=== PATIENT | female | born 1940 | race Caucasian/White ===

== ENCOUNTER → 2018-12-04 11:39 | Outpatient (CLI) | payer MEDICARE, SELFPAY | PROVIDERS: PCP Family Medicine; Referring Provider Family Medicine; Visit Provider Family Medicine | DX: I49.9 Cardiac arrhythmia, unspecified (principal); I42.9 Cardiomyopathy, unspecified | CPT/HCPCS: 93225; 93226 ==

== ENCOUNTER → 2019-05-11 08:06 | Outpatient (CLI) | payer MEDICARE, SELFPAY ==
--- NOTE | 2019-05-11 08:09 | US_ITS ---
PROCEDURE: US ABDOMEN COMPLETE CLINICAL INDICATION: EPIGASTRIC FULLNESS, GERD COMPARISON: No exams were available for comparison FINDINGS: PANCREAS: Unremarkable. No obvious mass or abnormal fluid collection. No ductal dilatation LIVER: No focal liver lesions demonstrated. Homogeneous echogenicity. No intrahepatic biliary ductal dilatation evident. There is appropriate direction of blood flow within a non dilated portal vein RIGHT KIDNEY: Unremarkable. Normal size and echogenicity. No hydronephrosis LEFT KIDNEY: There is a 2 cm left renal cyst along the lower pole of the left kidney. GALLBLADDER: No gallstones, gallbladder wall thickening, pericholecystic fluid, or biliary dilatation. There is a trace amount of sludge in the gallbladder with a suspected small polyp along the anterior wall at 2 mm. AORTA: Atherosclerotic changes involve the abdominal aorta with mild ectasia of the lower abdominal aorta at 2 cm. SPLEEN: Unremarkable. Normal size and echogenicity ASCITES: None demonstrated. IMPRESSION: 1. Trace gallbladder sludge with small polyp. No stones 2. Mild ectasia of the abdominal aorta at 2 cm with atherosclerotic change 3. 2 cm left renal cyst Dictated by: Tez Ahumada MD 05/12/2019 12:20 Electronically signed by Tez Ahumada MD in [place] 05/12/2019 12:20
== END ==
PROVIDERS: PCP Family Medicine; Visit Provider Family Medicine
DX: R19.06 Epigastric swelling, mass or lump (principal)
CPT/HCPCS: 76700

== ENCOUNTER → 2020-02-03 09:50 | Outpatient (CLI) | payer MEDICARE, SELFPAY ==
[2020-02-03 13:24] LABS: Coronavirus 19 IgG Antibody Negative (Negative); Coronavirus 19 IgM Antibody Negative (Negative)
== END ==
PROVIDERS: Visit Provider Internal Medicine Gastroenterology
DX: Z01.818 Encounter for other preprocedural examination (principal)
CPT/HCPCS: 36415; 86328

== ENCOUNTER 2020-02-06 09:52 | Day surgery (SDC) | payer MEDICARE, SELFPAY ==
[2020-01-31 10:40] VITALS: BMI 26.6
[2020-02-06] VITALS (7 sets, daily range): BP systolic 92–146; BP diastolic 53–84; PULSE 55–72; RESP 18; TEMP 36.3–36.5; O2SAT 96–100
--- NOTE | 2020-02-06 10:44 | HMH.PROC ---
[facility] Procedure Note Procedure Note:: Colonoscopy Procedure Report: Colonoscopy with monopolar ablation to destruction of internal hemorrhoids Endoscopist: Urbano Daniels II, MD Referring physician: José Miguel Duke MD Date of Procedure: February 06, 2020 Equipment: Olympus 180 variable stiffness pediatric colonoscope Sedation: MAC sedation Indication: Mrs. Sky is a 79-year-old female who is here for diagnostic colonoscopy secondary to some recent rectal bleeding twice. She also had some rectal bleeding with the bowel preparation last evening. The patient did have a colonoscopy 3 years ago (reportedly normal). The patient rarely has diarrhea. She reports no abdominal pain or weight loss. She is on Plavix and aspirin. Her daughter had colon cancer in her early 40s. Procedure: Prior to the procedure, a history and physical exam was performed, and patient's medications and allergies were reviewed. The risks, benefits and alternatives of the sedation and procedure were discussed with the patient. All questions were answered and informed consent was obtained. The patient was brought to the procedure room. Patient identification and proposed procedure were verified by the physician and the nurse. The patient was placed in a left lateral decubitus position and the scope was passed under direct vision. Throughout the procedure, the patient's blood pressure, pulse, and oxygen saturations were monitored continuously. The colonoscopy was accomplished without difficulty. The patient tolerated the procedure well. Findings: On digital rectal examination there was normal rectal tone. There were no external hemorrhoids. The colonoscope was introduced through the anal canal to the rectum and advanced to the cecum. The ileocecal valve and appendiceal orifice were identified. The scope was advanced a short distance into the ileum which appeared grossly normal. The scope was then withdrawn into the colon. The cecum, ascending, transverse, descending, sigmoid and rectum were grossly normal. There were no mucosal abnormalities identified. Upon retroflexion within the rectum there were grade 1-2 internal hemorrhoids.3 columns of hemorrhoids were ablated/coagulated using monopolar ablation to destruction with excellent coagulative effect. The preparation was excellent throughout with [place] Preparation Score of 9. The cecal time was 10 minutes. Impression: 1. Normal colonoscopy with intubation of the terminal ileum 2. Grade 1-2 internal hemorrhoids status post monopolar ablation/coagulation to destruction Plan: The patient did have bleeding internal hemorrhoids. I would encourage bulk fiber supplementation on a long-term daily maintenance basis. I am not convinced that the patient will require any further surveillance colonoscopy based upon her age.
== END 2020-02-06 12:16 | disposition home or self-care (01) ==
LOC: OUTP 09:54
PROVIDERS: PCP Family Medicine; Visit Provider Internal Medicine Gastroenterology
PROC: 0DJD8ZZ Inspection of Lower Intestinal Tract, Via Natural or Artificial Opening Endoscopic (ICD-10-PCS; CPT 45378; principal; 2020-02-06 11:00)
DX: K64.0 First degree hemorrhoids (principal); K62.5 Hemorrhage of anus and rectum; Z80.0 Family history of malignant neoplasm of digestive organs; Z79.02 Long term (current) use of antithrombotics/antiplatelets; Z79.82 Long term (current) use of aspirin; I10 Essential (primary) hypertension; I25.10 Atherosclerotic heart disease of native coronary artery without angina pectoris; Z88.0 Allergy status to penicillin; Z88.8 Allergy status to other drugs, medicaments and biological substances
CPT/HCPCS: 45378; 46930

== ENCOUNTER → 2020-09-24 12:12 | Outpatient (CLI) | payer MEDICARE, SELFPAY ==
--- NOTE | 2020-09-24 12:29 | ECG_ITS ---
APPROVED REPORT Exam: Resting ECG HR:51 bpm ECG Measurements Heart Rate 51 AXES [place] 152 P 43 QRSd 134 QRS 83 QT 450 T 45 QTc 414 Conclusion Sinus bradycardia Left bundle branch block Abnormal ECG Electronically signed by : Nelson Cedeño, 09/24/2020 14:58:33
== END ==
PROVIDERS: PCP Family Medicine; Visit Provider Family Medicine
DX: R07.9 Chest pain, unspecified (principal); K82.4 Cholesterolosis of gallbladder
CPT/HCPCS: 93005

== ENCOUNTER → 2020-09-27 08:02 | Outpatient (CLI) | payer MEDICARE, SELFPAY ==
--- NOTE | 2020-09-27 08:05 | US_ITS ---
PROCEDURE: US ABDOMEN LIMITED CLINICAL INDICATION: POLYP OF GB Abdominal pain COMPARISON: US US ABDOMEN COMPLETE from 05/11/2019 FINDINGS: PANCREAS: Unremarkable. No obvious mass or abnormal fluid collection. No ductal dilatation LIVER: No focal liver lesions demonstrated. Homogeneous echogenicity. No intrahepatic biliary ductal dilatation evident. There is appropriate direction of blood flow within a non dilated portal vein RIGHT KIDNEY: Unremarkable. Normal size and echogenicity. No hydronephrosis GALLBLADDER: Numerous small echogenic foci with comet tail artifact noted within the gallbladder wall with some minimal gallbladder wall thickening consistent with adenomyomatosis. No shadowing stones apparent. IMPRESSION: Adenomyomatosis of the gallbladder which appears somewhat more evident than when compared to the previous exam Dictated by: Tez Ahumada MD 09/27/2020 15:22 Tez Ahumada MD in [place] 09/27/2020 15:22
== END ==
PROVIDERS: PCP Family Medicine; Visit Provider Family Medicine
DX: K82.4 Cholesterolosis of gallbladder (principal)
CPT/HCPCS: 76705

== ENCOUNTER → 2020-10-17 09:33 | Outpatient (CLI) | payer MEDICARE, SELFPAY ==
--- NOTE | 2020-10-17 09:35 | MM_ITS ---
PROCEDURE: MM DIG SCREENING MAMM BI W/CAD Digital Breast Tomosynthesis Included CLINICAL INDICATION: FIBROCYSTIC BREAST DISEASE LT There is no personal or family history of breast cancer. COMPARISON: MG DMDXUAVL DIG MAMM-DX UNI ADD VIEWS-LT from 04/12/2015 MG DMDXUL DIG MAMM-DX UNI-LT from 10/30/2015 MG DMSB DIG MAMM-SCREEN GURWINDER W/CAD from 01/27/2017 TECHNIQUE: Standard CC and MLO images and 3D Tomosynthesis was obtained. R2 CAD reviewed. FINDINGS: Breasts are composed primarily of fat with scattered fibroglandular densities in each breast. Moderate arterial calcification in each breast. There is a mole marker near the axillary tail right breast. There is a partially calcified oil cyst upper right breast. There is a stable tiny benign-appearing nodular density central portion right breast. There is no suspicious lesion in either breast and no suspicious microcalcifications. IMPRESSION: Fibrofatty parenchyma with no suspicious lesions seen BI-RAD Category: 2 Benign Finding(s) FOLLOW-UP: 1YR 1 Year Follow-up (A letter has been sent to the patient regarding results of the study.) Dictated by: Dr. Roman Brown MD 10/21/2020 12:20 Dr. Roman Brown MD in [place] 10/21/2020 12:20
--- NOTE | 2020-10-17 09:35 | XR_ITS ---
PROCEDURE: XR DEXA AXIAL SKELETON CLINICAL HISTORY: OSTEOPENIA COMPARISON: CR BONE3 BONE DENSITOMETRY(HIP:LT SPINE from 01/27/2017 FINDINGS: The right hip BMD is 0.724 with a T-score of -1.8. The left hip BMD is 0.624 with a T-score of -2.6. The lumbar spine BMD is 0.833 with a T-score of -1.9. Previously the lowest density was in the left femur with a T-score of -2.4 IMPRESSION: This patient is considered osteoporotic according to the World Health Organization criteria. Fracture risk is high. Treatment is advised. Based on these results a follow-up exam is recommended in 1 year. Dictated by: Tez Ahumada MD 10/18/2020 07:58 Tez Ahumada MD in [place] 10/18/2020 07:58
== END ==
PROVIDERS: PCP Family Medicine; Visit Provider Family Medicine
DX: Z12.31 Encounter for screening mammogram for malignant neoplasm of breast (principal); M85.89 Other specified disorders of bone density and structure, multiple sites
CPT/HCPCS: 77063; 77067; 77080

== ENCOUNTER → 2022-04-30 10:46 | Outpatient (CLI) | payer MEDICARE, SELFPAY ==
--- NOTE | 2022-04-30 | CA_ITS ---
APPROVED REPORT EXAM: Comprehensive 2D, Doppler, and color-flow Echocardiogram Vice President Of Human Resources: Jenny Guido CRT Ht: 5 ft 6 in Wt: 156lbs BSA: 1.80 BP: 110/70 mmHg Indications: Hyperlipidemia, Cardiomyopathy, Hypertension/HDD 2D Dimensions LVOT 1.83 cm (M/F) 1.5-2.5 LA Volume 44.70 mL LA Volume Index 24.80 mL/m2 (M/F) 16-34 M-Mode Dimensions RVDd 2.93 cm (0.9-2.6) LA Diam 3.59 cm (1.9-4.0) LVDd 5.25 cm (3.5-5.7) Ao Diam 3.68 cm (2.0-3.7) LVDs 3.97 cm (3.5-5.7) IVSd 1.54 cm (0.6-1.1) PWd 0.54 cm (0.6-1.1) EF (Teich) 48.00% FS 24.40% EDV (Teich) 132.40 mL TAPSE 2.48 (<1.7) ESV (Teich) 68.80 mL LV Diastology E Decel Time 247.00 (160-240 msec) E/A Ratio 1.12 MED E' 6.40 (< 7 cm/sec) MED A' 9.50 cm/s E'/MED E' Ratio 18.41 (>14) LAT E' 7.20 (<10 cm/sec) LAT A' 11.00 cm/s E/LAT E' Ratio 16.36 (>14) Aortic Valve AI PHT 662.00 ms AO Peak GR. 6.40 mmHg Mitral Valve MV E Max Doyle. 118.00 (40-130 cm/s) MV A Velocity 105.00 (40-130 cm/s) E/A Ratio 1.12 MV Decel. Time 247.00 (160-240 ms) MV PHT 72.00 ms Pulmonary Valve PV Peak Velocity 134.00 (50-150 cm/s) Tricuspid Valve TR P. Velocity 237.00 cm/s RAP Estimate 10.00 mmHg RVSP 32.50 mmHg Left Ventricle Left atrium is mildly enlarged, left ventricle is normal size mild concentric left ventricular hypertrophy, estimated ejection fraction between 45 to 50%, there is mild hypokinesis involving mid to distal septum and anterior apical wall. Grade 1 diastolic dysfunction seen without tissue Doppler evidence of raise left atrial pressure. Right Ventricle Right atrium and right ventricle are normal size and contractility. Aortic Valve Aortic valve is minimally thickened and fibrosed there is no aortic stenosis, there is mild aortic insufficiency. Mitral Valve Mitral valve leaflets are minimally thickened, there is mild mitral regurgitation. Tricuspid Valve Tricuspid valve grossly normal, there is mild tricuspid regurgitation, calculated right ventricular systolic pressure 32 mmHg. Pulmonic Valve Pulmonic valve is poorly visualized. Great Vessels Aortic root is normal size. Inferior vena cava is poorly visualized. Pericardium No significant pericardial effusion noted. Conclusion 1. Mildly enlarged left atrium, normal left ventricular size, mild concentric left ventricular hypertrophy, estimated ejection fraction between 45 to 50%, with segmental wall motion abnormality described above, grade 1 diastolic dysfunction seen without tissue Doppler evidence of raise left atrial pressure. 2. Mild aortic, mild mitral and tricuspid regurgitation. 3. No significant pericardial effusion. 4. Inferior vena cava is poorly visualized. Electronically signed by : Humphrey Sanchez MD 05/01/2022 06:10:35
== END ==
PROVIDERS: PCP Family Medicine; Visit Provider Family Medicine
DX: I42.8 Other cardiomyopathies (principal)
CPT/HCPCS: 93306

== ENCOUNTER → 2023-04-09 09:02 | Outpatient (CLI) | payer MEDICARE, SELFPAY ==
--- NOTE | 2023-04-09 09:08 | XR_ITS ---
FINAL REPORT CLINICAL HISTORY: OSTEOPOROSIS COMPARISON: 10/17/2020 FINDINGS: Using L1-4, the bone mineral density of the spine is 0.847 g/cm2, corresponding to T-score of -1.8, consistent with low bone density. Previously 0.833 g/cm? with T score of -1.9. Using the left hip, the bone mineral density of the femoral neck is 0.598 g/cm2, corresponding to a T-score of -2.3, consistent with low bone density. Previously 0.648 g/cm? with a T score of -1.8. Using the right hip, the bone mineral density of the femoral neck is 0.594 g/cm2, corresponding to a T-score of -2.3, consistent with low bone density. Previously 0.697 g/cm? with a T score of -1.5. FRAX not reported because total T-score for left hip at or below -2.5. NOTE: T-score: Standard deviation compared with peak bone mass of young adult mean. *Following the recommendations of the International Society of Bone densitometry, classification of hip BMD is based on the lower of two T-scores; total hip or femoral neck. IMPRESSION: Diminished bone mineral density consistent with low bone density/borderline osteoporosis. Reviewed, Interpreted and Dictated by Neil Bliss III, MD Transcribed by Verónica Arreaga Authenticated and [facility]
== END ==
PROVIDERS: PCP Family Medicine; Visit Provider Family Medicine
DX: M81.0 Age-related osteoporosis without current pathological fracture (principal)
CPT/HCPCS: 77080

== ENCOUNTER 2023-08-04 09:56 | Outpatient (POV) | payer MEDICARE, SELFPAY | END 2023-08-04 23:59 | disposition home or self-care (01) | LOC: SC 09:57 | PROVIDERS: PCP Family Medicine; Visit Provider Dermatology | DX: Z00.00 Encounter for general adult medical examination without abnormal findings (principal) ==

== ENCOUNTER 2024-05-01 11:38 | Emergency (ER) | payer MEDICARE, SELFPAY ==
[2024-05-01] VITALS (11 sets, daily range): BP systolic 154–195; BP diastolic 58–80; PULSE 54–82; RESP 14–23; TEMP 36.6; O2SAT 96–100; BMI 24.2
--- NOTE | 2024-05-01 11:52 | ECG_ITS ---
APPROVED REPORT Exam: Resting ECG HR:63 bpm ECG Measurements Heart Rate 63 AXES [place] 154 P 15 QRSd 141 QRS 88 QT 428 T 4 QTc 436 Conclusion SINUS RHYTHM INTRAVENTRICULAR CONDUCTION DELAY [130+ ms QRS DURATION] ABNORMAL ECG Electronically signed by : CRUZ STOUT, 05/03/2024 07:31:42
--- NOTE | 2024-05-01 12:20 | ED_ITS ---
Discharge Plan Disposition Chief Complaint: Weakness Prescriptions Prescriptions: No Action losartan 50 MG tablet 50 mg PO DAILY clopidogrel 75 MG tablet 75 mg PO DAILY aspirin 81 MG tablet,delayed release (DR/EC) 81 mg PO DAILY triamterene-hydrochlorothiazid 1 EACH tablet 1 each PO DAILY metoprolol succinate 25 MG tablet extended release 24 hr 25 mg PO DAILY ezetimibe 10 MG tablet 10 mg PO DAILY Referrals Follow up/Referrals: Terrell Duke MD [Primary Care Provider] - See instructions Print Language Print Language: Peruvian Discharge ED Provider: [place] Katz [facility] Adult HPI General Chief complaint: Weakness Stated complaint: weakness, heart palpitations, cough, pain in ribs Time Seen by Provider: 05/01/24 12:20 Mode of Arrival: Ambulatory Source of Information: Patient Limitations: No Limitations Description of Symptoms (Recalled from ER Triage Doc. by RN): pt c/o weakness and heart racing. pt denies chest pain. pt reports she has been sick for about 3wks with a nonproductive cough. pt states she tested today at home and was negative for covid. pt reports she has seen her pcp X2 during this time. pt is currently on an antibiotic. History of Present Illness HPI narrative: Patient is a 83-year-old with past medical history significant for coronary artery disease status post 1 stent hypertension who presents to the emergency department with 3 days of generalized weakness. She has had 3 weeks of a nonproductive cough with started on Mucinex D without improvement of symptoms and is currently taking an antibiotic prescribed by her primary care provider. Patient takes a diuretic pill with no recent changes in medications. Patient denies chest pain shortness of breath with exertion patient feels like she gets dizzy about to pass out whenever she stands from a lying down position. No diarrhea abdominal pain dysuria or increased urinary frequency. Patient is still able to get about her house without difficulty and ambulate. Denies palpitations. Intermittent bilateral flank pain Related Data Home Medications ?Medication ?Instructions ?Recorded ?Confirmed aspirin 81 mg tablet,delayed 81 mg PO DAILY Blood thinner 01/31/20 02/06/20 release clopidogrel 75 mg tablet 75 mg PO DAILY Blood thinner 01/31/20 02/06/20 ezetimibe 10 mg tablet 10 mg PO DAILY Cholesterol 01/31/20 02/06/20 losartan 50 mg tablet 50 mg PO DAILY bp 01/31/20 02/06/20 metoprolol succinate 25 mg 25 mg PO DAILY bp 01/31/20 02/06/20 tablet,extended release 24 hr triamterene 37.5 1 each PO DAILY bp 01/31/20 02/06/20 mg-hydrochlorothiazide 25 mg tablet Allergies Allergy/AdvReac Type Severity Reaction Status Date / Time Penicillins [PENICILLINS] Allergy Unknown I-RASH Verified 02/06/20 10:19 ticagrelor [From [facility]] Allergy Unknown I-RASH Verified 02/06/20 10:19 [facility] Disclaimer: The information contained in this section may have been updated after the patient was seen, as this information can be updated by other users. Social History Smoking Status: Never smoker second hand exposure: No alcohol intake: never current occupational status: retired Travel in the last 8 weeks: None housing: house current occupational exposures/hazards: No caffeine: Yes ROS Obtained: Yes All systems reviewed & no additional complaints except as documented Physical Exam General General appearance: alert and in no apparent distress Head Head exam: atraumatic and normocephalic Eye Eye exam: Present normal appearance and PERRL ENT ENT exam: Present normal exam and mucous membranes moist Chest Chest inspection: Present normal inspection; Absent tenderness Respiratory Respiratory exam: Present normal lung sounds bilaterally; Absent respiratory distress Cardiovascular Cardiovascular exam: Present regular rate and normal rhythm Abdominal Exam Abdominal exam: Present soft; Absent distention or tenderness Neurological Exam Neurological exam: Present alert, oriented X3, CN II-XII intact, normal gait and other (Negative nhon-ug-[id number] and oimjuf-wj-pagi); Absent motor sensory deficit Other Other exam information: Positive orthostasis with standing Medical Decision Making Medical Records Screening: Per USPSTF and CDC recommendations, given the prevalence of disease in our region, it is our hospital?s policy to screen for HIV and viral Hepatitis for all patients aged 18 and over and those with ongoing risk factors. Stephen Inquiry Pt receiving controlled substance: No Vital Signs: 05/01/24 11:51 05/01/24 12:01 05/01/24 12:30 Temperature 98 F Temperature Source Oral Pulse Rate 65 63 Pulse Rate [Left] 82 Pulse Rate [Orthostatic Lying Right Radial] Pulse Rate [Orthostatic Sitting Right Radial] Pulse Rate [Orthostatic Standing Right Radial] Respiratory Rate 14 20 14 Blood Pressure 171/69 H 178/69 H Blood Pressure [Orthostatic Lying Right Arm] Blood Pressure [Orthostatic Sitting Right Arm] Blood Pressure [Orthostatic Standing Right Arm] Blood Pressure [Right Arm] 195/80 H Blood Pressure Mean [Right Arm] 118 Blood Pressure Source [Right Arm] Automatic Cuff Blood Pressure Position [Right Arm] Sitting 02 Sat by Pulse Oximetry 98 97 100 Oxygen Delivery Method Room Air Room Air 05/01/24 13:05 05/01/24 13:07 05/01/24 13:30 Temperature Temperature Source Pulse Rate 59 L 57 L Pulse Rate [Left] Pulse Rate [Orthostatic Lying Right Radial] 61 Pulse Rate [Orthostatic Sitting Right Radial] 59 L Pulse Rate [Orthostatic Standing Right Radial] 74 Respiratory Rate 21 15 Blood Pressure 154/68 H 160/59 H Blood Pressure [Orthostatic Lying Right Arm] 168/67 H Blood Pressure [Orthostatic Sitting Right Arm] 176/72 H Blood Pressure [Orthostatic Standing Right Arm] 154/68 H Blood Pressure [Right Arm] Blood Pressure Mean [Right Arm] Blood Pressure Source [Right Arm] Blood Pressure Position [Right Arm] 02 Sat by Pulse Oximetry 98 99 Oxygen Delivery Method Room Air Room Air 05/01/24 14:00 05/01/24 14:30 05/01/24 15:00 Temperature Temperature Source Pulse Rate 55 L 54 L 62 Pulse Rate [Left] Pulse Rate [Orthostatic Lying Right Radial] Pulse Rate [Orthostatic Sitting Right Radial] Pulse Rate [Orthostatic Standing Right Radial] Respiratory Rate 23 19 23 Blood Pressure 166/58 H 158/60 H 166/66 H Blood Pressure [Orthostatic Lying Right Arm] Blood Pressure [Orthostatic Sitting Right Arm] Blood Pressure [Orthostatic Standing Right Arm] Blood Pressure [Right Arm] Blood Pressure Mean [Right Arm] Blood Pressure Source [Right Arm] Blood Pressure Position [Right Arm] 02 Sat by Pulse Oximetry 98 98 96 Oxygen Delivery Method Room Air Room Air Room Air Lab Data Lab Results 05/01/24 11:50: WBC 8.3, RBC 4.52, Hgb 13.9, Hct 44.4, MCV 98.1, MCH 30.7, MCHC 31.3 L, RDW 13.7, Plt Count 355, MPV 7.0 L, Neut % (Auto) 61.7, Lymph % (Auto) 25.9, [place] % (Auto) 8.4, Eos % (Auto) 2.9, Baso % (Auto) 1.1, Neut # (Auto) 5.1, Lymph # (Auto) 2.2, [place] # (Auto) 0.7, Eos # (Auto) 0.2, Baso # (Auto) 0.1, Sodium 138, Potassium 4.0, Chloride 106, Carbon Dioxide 27, Anion Gap 9.0, BUN 32 H, Creatinine 1.10 H, Estimated Creat Clear 42, Estimated GFR 47 L, Est GFR ( Amer) 57 L, Glucose 99, Calcium 10.0, Magnesium 1.5 L, Total Bilirubin 0.8, AST 36, ALT 18, Alkaline Phosphatase 78, Troponin I < 0.01, NT-Pro-B Natriuret Pep 839 H, Total Protein 7.4, Albumin 4.4, Globulin 3.0, Albumin/Globulin Ratio 1.5, TSH 2.15, Thyroxine (T4) 11.9 H 05/01/24 11:54: HIV 1&2 Antibody Rapid Nonreactive 05/01/24 11:50 05/01/24 11:50 Orders (Tests/Meds): ED MEDICATIONS Discontinued Medications Generic Name Dose Route Start Last Admin Trade Name Freq PRN Reason Stop Dose Admin Lactated Ringer's 500 mls @ 999 mls/hr 05/01/24 12:32 05/01/24 13:12 Lactated Ringer's 500ml IV 05/01/24 13:02 999 mls/hr .Q31M ONE Administration ORDERS Category Date Time Status Chest XR 2 view (NOT portable) [XR chest 2V] Stat Exams 05/01/24 12:29 Completed BNP [NT Pro Brain Natriuretic Pep.] Stat Lab 05/01/24 11:50 Completed CBC w/Auto Diff [Complete Blood Count Auto Diff] Stat Lab 05/01/24 11:50 Completed CMP [Comprehensive Metabolic Panel] Stat Lab 05/01/24 11:50 Completed HIV (1&2) Antibody Rapid Stat Lab 05/01/24 11:54 Completed Hep C Ab with Reflex to RNA Stat Lab 05/01/24 11:54 Received MAG [Magnesium] Stat Lab 05/01/24 11:50 Completed T4 (Thyroxine) Stat Lab 05/01/24 11:50 Completed TSH [Thyroid Stimulating Hormone] Stat Lab 05/01/24 11:50 Completed Trop I [Troponin I] Stat Lab 05/01/24 11:50 Completed UA [Urinalysis and Microscopic] Stat Lab 05/01/24 16:11 Received Medical Decision Narrative: In summary, this 83-year-old female presents to the emergency department today with generalized weakness. On initial evaluation patient is hemodynamically stable saturating appropriately on room air afebrile no acute distress. Differential diagnosis includes but is not limited to viral or bacterial pneumonia, electrolyte abnormality, dehydration orthostasis, cystitis, heart failure exacerbation, hypothyroidism pyelonephritis. Based on these concerns, I ordered Chest x-ray BNP CBC CMP magnesium TSH T4 troponins UA . ECG personally interpreted demonstrates normal sinus rhythm no acute ST elevation ST depression or T wave inversions concerning for ischemia Patient received 500 cc of LR for treatment. Labs personally reviewed demonstrate normal Hb, mag 1.5 XR personally interpreted demonstrates atelectasis left lung, no pneumothorax or consolidation On reassessment patient has improvement of symptoms able to ambulate and tolerate p.o. at 4 PM transfer of care was given to Dr. Katz pending urine studies for evaluation of urinary tract infection. Critical Care Critical Care Time Critical Care Time: No
--- NOTE | 2024-05-01 12:29 | XR_ITS ---
PROCEDURE INFORMATION: Exam: XR Chest Exam date and time: 05/01/2024 12:38 PM Age: 83 years old Clinical indication: Shortness of breath; Prior surgery; Surgery date: 6+ months; Surgery type: Stent placement; Additional info: SOA TECHNIQUE: Imaging protocol: Radiologic exam of the chest. Views: 2 views. COMPARISON: No relevant prior studies available. FINDINGS: Lungs: Calcified granuloma left lung base. Hyperlucent changes are demonstrated. Increase in the lung volumes is demonstrated. Regions of subsegmental atelectasis most pronounced left lung base. Pleural spaces: Unremarkable. No pleural effusion. No pneumothorax. Heart/Mediastinum: Unremarkable. No cardiomegaly. Diaphragm: There is flattening of the hemidiaphragms. Bones/joints: Unremarkable. IMPRESSION: 1. Regions of subsegmental atelectasis most pronounced left lung base. 2. No evidence of acute cardiopulmonary disease.
[2024-05-01 12:41] LABS: Albumin Level 4.4 g/dl (3.5-5.0); Chloride 106 mmol/L (98-107); Sodium 138 mmol/L (136-145)
[2024-05-01 12:43] LABS: Blood Urea Nitrogen 32 mg/dl (7-17); Creatinine Clearance Estimated 42 mL/min (50-200); Estimated Glomerular Filt Rate 47 ml/min (>60); GFR (African American) 57 ML/MIN (>60)
[2024-05-01 12:44] LABS: Alanine Aminotransferase 18 U/L (12-78); Albumin/Globulin Ratio 1.5 (1.1-1.8); Alkaline Phosphatase 78 U/L (38-126); Aspartate Amino Transferase 36 U/L (14-36); Bilirubin,Total 0.8 mg/dl (0.2-1.3); Carbon Dioxide 27 mmol/L (22.0-30.0); Glucose 99 mg/dl (74-100); Magnesium 1.5 mg/dl (1.6-2.3); Total Protein,Serum 7.4 g/dl (6.3-8.2)
[2024-05-01 12:45] LABS: HIV (1&2) Antibody Rapid NONREACTIVE (NONREACTIVE)
--- NOTE | 2024-05-01 12:48 | PC.NURSE ---
patient gone to RAD at this time.
[2024-05-01 12:54] LABS: NT Pro Brain Natriuretic Pep. 839 pg/mL (0-450)
[2024-05-01 12:57] LABS: Troponin I < 0.01 ng/ml (0.00-0.034)
[2024-05-01 13:01] LABS: T4 (Thyroxine) 11.9 ug/dl (5.53-11.0)
[2024-05-01 13:06] LABS: Basophils # 0.1 K/mm3 (0-0.2); Basophils % 1.1 % (0.1-2.0); Eosinophils # 0.2 K/mm3 (0.0-0.4); Eosinophils % 2.9 % (0.1-12.0); Hematocrit 44.4 % (37.0-47.0); Hemoglobin 13.9 g/dL (12.2-16.2); Lymphocytes # 2.2 K/mm3 (0.7-4.5); Lymphocytes % 25.9 % (10-50); Mean Corpuscular HGB Conc 31.3 g/dL (31.8-35.4); Mean Corpuscular Hemoglobin 30.7 pg (27.0-31.2); Mean Corpuscular Volume 98.1 fl (81-99); Monocytes # 0.7 K/mm3 (0.1-1.0); Monocytes % 8.4 % (1.7-9.3); Neutrophils # 5.1 K/mm3 (1.8-7.8); Neutrophils % 61.7 % (37.0-80.0); Platelet Count 355 K/mm3 (142-424); Red Blood Count 4.52 M/mm3 (4.20-5.40); Red Cell Distribution Width 13.7 % (11.5-17.5); White Blood Count 8.3 K/mm3 (4.8-10.8)
[2024-05-01] MEDS: RINGERS SOLUTION,LACTATED 500 ML 999 ML IV (13:12)
--- NOTE | 2024-05-01 13:14 | PC.NURSE ---
I rounded on the pt, no new complaints at this time. no new needs voiced. call hutson in reach.
[2024-05-01 13:15] LABS: Thyroid Stimulating Hormone 2.15 uIU/mL (0.465-4.68)
[2024-05-01 16:14] LABS: Microscopic, Urine URINE MICROSCOPIC (MICROSCOPIC)
[2024-05-01 17:06] LABS: Appearance,Urine CLEAR (Clear); Bilirubin,Urine Negative (Negative); Blood, Urine Negative (Negative); Color,Urine YELLOW (Yellow); Glucose,Urine (UA) Negative (Negative); Ketones,Urine Negative (Negative); Leukocyte Esterase,Urine Negative (Negative); Nitrate,Urine Negative (Negative); Protein,Urine Negative (Negative); Specific Gravity, Urine 1.015 (1.005-1.030); Urobilinogen,Urine 0.2 EU/dl (0.2)
[2024-05-01 17:13] LABS: WBC,Urine Occasional #/hpf (0-3)
[2024-05-01] MEDS: MAGNESIUM OXIDE 400MG TABLET 800 MG PO (17:23)
[2024-05-02 11:10] LABS: HCV Ab Non Reactive (Non Reactive)
== END 2024-05-01 17:28 | disposition home or self-care (01) ==
PROVIDERS: Student in an Organized Health Care Education/Training Program; Emergency Provider Emergency Medicine; PCP Family Medicine
DX: R53.1 Weakness (principal); R79.89 Other specified abnormal findings of blood chemistry; R00.2 Palpitations; R07.81 Pleurodynia
CPT/HCPCS: 71046; 80053; 81001; 83735; 83880; 84436; 84443; 84484; 85025; 86803; 87389; 93005; 99284; J7120

== ENCOUNTER 2024-11-02 08:52 | Outpatient (CLI) | payer MEDICARE, SELFPAY ==
--- NOTE | 2024-11-02 08:56 | XR_ITS ---
FINAL REPORT TECHNIQUE: Bone mineral density was calculated of the lumbar spine and hip. CLINICAL HISTORY: SCREENING COMPARISON: 04/09/2023 FINDINGS: Using L1-4, the bone mineral density of the spine is 0.872 g/cm2, corresponding to T-score of -1.6. Using the left hip, the bone mineral density of the femoral neck is 0.665 g/cm2, corresponding to a T-score of -2.3. Using the right hip, the bone mineral density of the femoral neck is 0.650 g/cm?, corresponding to a T-score of -2.4. NOTE: T-score: Standard deviation compared with peak bone mass of young adult mean. *Following the recommendations of the International Society of Bone densitometry, classification of hip BMD is based on the lower of two T-scores; total hip or femoral neck. IMPRESSION: Diminished bone mineral density of the lumbar spine and bilateral hips consistent with osteopenia. Reviewed, Interpreted and Dictated by Terrell Joyce MD Transcribed by Oma Avina Authenticated and [facility]
== END 2024-11-02 23:59 | disposition home or self-care (01) ==
LOC: RAD 08:53
PROVIDERS: PCP Family Medicine; Visit Provider Family Medicine
DX: M81.0 Age-related osteoporosis without current pathological fracture (principal)
CPT/HCPCS: 77080

== ENCOUNTER 2025-05-15 08:54 | Outpatient (CLI) | payer MEDICARE, SELFPAY ==
--- OUTSIDE RECORDS SUMMARY | 2024-10-10 07:15 | XMS_ITS ---
Author Organization [facility] Address [address] [place], [place] [phone] Care Team Providers Care Investment Specialist Name Role Phone Elvie Duke Primary Care Provider [phone] Allergies Allergen (clinical drug ingredient) Drug/Non Drug Allergy documented on EMR Reaction Allergy Type Onset Date Status Substance with penicillin structure and antibacterial mechanism of action (substance) Penicillins rash Drug Allergy Active Results Component Value Reference Range Notes CBC Venipuncture (in house) Reviewed date:10/11/2024 08:44:13 AM Interpretation:Normal Performing Lab: Notes/Report: Normal wbc 8.1 3.5 - 10 lymph 17.9% 15 - 50 mid 5.5% 2 - 15 gran 76.6% 35 - 80 rbc 4.02 3.5 - 5.5 hgb 12.6 11.5 - 16.5 hct 36.7 35 - 55 mcv 91.2 75 - 100 mch 31.4 25 - 35 mchc 34.4 31 - 38 platlet 277 100 - 400 P-Comprehensive Metabolic Pa yuri (CMP) Reviewed date:10/11/2024 08:44:13 AM Interpretation:bun 33, Gr 1.15, gfr 47 Performing Lab: Notes/Report: Test performed by [employer] [place] [facility] [facility] , [address], [place] [address] Dane Kerr MD, Telecommunications Project Manager CLIA: [id number] Sodium 143 135-145 mmol/L Potassium 4.3 3.5-5.3 mmol/L Chloride 108 97-108 mmol/L CO2 26 22-32 mmol/L Glucose 93 65-99 mg/dL BUN 33 8-23 mg/dL Creatinine 1.15 0.50-1.00 mg/dL Calcium 9.6 8.6-10.4 mg/dL eGFR by Creatinine 47 >59 mL/min/1.73m2 Protein 6.6 6.0-8.3 g/dL Albumin 4.3 3.5-5.3 g/dL Alkaline Phosphatase 81 35-121 IU/L ALT (SGPT) 9 <5-47 IU/L AST (SGOT) 16 <5-40 IU/L Bilirubin, Total 0.5 <0.2-1.2 mg/dL A/G Ratio 1.9 1.1-2.5 DEXA Hip and Spine Reviewed date:02/24/2025 12:22:07 PM Interpretation:osteopenia Performing Lab: Notes/Report: osteopenia Dexa results osteopenia REASON FOR VISIT 4 Month Check Up, Needs labs & bone density screening Medications Medication SIG (Take, Route, Frequency, Duration) Notes Start Date End Date Status Clopidogrel Bisulfate 75 MG 1 tablet Orally Once a day; Duration: 30 days Active Vitamin D (Cholecalciferol) 50 MCG (2000 UT) 1 cap(s) orally once a day 05/16/2015 Active Chlorthalidone 25 MG 1 tablet in the mor emilee with food Orally; Duration: 30 days Active Vitamin B-12 1000 MCG 1 tab(s) orally on 05/16/2015 Active Losartan Potassium 50 MG 1 tablet Orally Once a day; Duration: 30 day(s) Active Zetia 10 MG 1 tab(s) orally once a day; Duration: 30 days Active Esomeprazole Magnesium 40 MG 1 cap(s) orally once a day 09/24/2020 Active Aspirin 81 MG 1 tab orally at bedtime 07/29/2011 Not-Taking Pravastatin Sodium 20 MG 1 tab(s) orally once a day (at bedtime); Duration: 30 days Active Risedronate Sodium 35 MG 1 Orally once a week 10/01 Active Metoprolol Succinate ER 25 MG TAKE 1/2 TABLET BY MOUTH IN THE MORNING AND 1 TABLET IN THE EVENING. Active Nitrostat 0.3 MG 1 tab(s) sublinguall y every 5 minutes as needed Active Flonase Allergy Relief 50 MCG/ACT 1 spray(s) in each nostril once a day; Duration: 30 day(s) 04/30/2022 Active Vital Signs Blood pressure systolic 144 mm Hg 10/11/19 25 Blood pressure diastolic 60 mm Hg 025 Heart Rate 59 /min 10/10/2024 Height 64.25 in 10/10/2024 Weight 148.0 lbs 10/10/2024 BMI 25.20 kg/m2 10/10/2024 Encounters Encounter Location Date Provider Diagnosis [facility] [address] [facility] [address] [facility] [address] [place] [id number] 10/10/2024 Elvie Duke Essential hypertensi on I10 ; Renal insufficiency N28.9 ; Osteoporosis M81.0 and Cardiac dysrhythmia, unspecified I49.9 Assessments Encounter Date Diagnosis (ICD Code) Assessment Notes Treatment Notes Treatment Clinical Notes Section Notes 10/10/2024 Essential hypertension (ICD-10 - I10) 10/10/2024 Renal insufficiency (ICD-10 - N28.9) 10/10/2024 Osteoporosis (ICD-10 - M81.0) 10/10/2024 Cardiac dysrhythmia, unspecified (ICD-10 - I49.9) Plan Of Treatment Medication Medication Name Sig Start Date Stop Date Notes Clopidogrel Bisulfate 75 MG 1 tablet Ora lly Once a day; Duration: 30 days Chlorthalidone 25 MG 1 tablet in the mor emilee with food Orally; Duration: 30 days Losartan Potassium 50 MG 1 tablet Orally Once a day; Duration: 30 day(s) Esomeprazole Magnesium 40 MG 1 cap(s) orally once a day Risedronate Sodium 35 MG 1 Orally once a week 10/10/2024 Next Appt Details Follow Up: 4 Months, Reason: Provider Name:Elvie Robb er, 06/19/2025 10:00:00 AM, [address] [facility], [address], [place], [phone], Progress Notes * SIRENA HACKETTDOB: (84 yo F)Acc No.[id number]:10/10/2024 Progress Notes Patient: SIRENA CHRISTIANSEN Provider: Elvie Duke M.D. :1940 A ge:83 Y S ex:Female Date:10/10/2024 Address:[address], [place] [address] Subjective: * Chief Complaints: * 1 . 4 Month Check Up. 2. Needs labs & bone density screening. * HPI: C ardiology: The pt is here for a check up on Hypertension and Hyperlipidemia. Pt states she is doing good and denies any new concerns. Pt is fasting. Pt states she is needing refills sent to [place] pharmacy. Denies : Chest Pain. D enies : Short of Breath. D enies : Dizziness. D enies : [...] Supraventricular Tachycardia, nonsustained, Athscl Heart Disease of [place] Coronary Artery w/o ang PCTRS, Essential Hypertension, Pure Hypercholesterolemia, Cardiomyopathy, Hyperlipidemi, Vitamin D Deficiency, Shingrix #1, 12/2018, Covid Vaccines, [place] HD, 10/03/2020 , Adenomyomatosis of the GB, [...] , Taking Vitamin D (Cholecalciferol) 50 MCG (1999 UT) Capsule 1 cap(s) orally once a [...] 25 MG Tablet Extended Release 24 Hour TAKE 1/2 TABLET BY MOUTH IN THE MORNING AND 1 TABLET IN THE EVENING. , Taking Clopidogrel Bisulfate 75 MG Tablet 1 tablet Orally Once a day , Taking Zetia 10 MG Tablet 1 tab(s) orally once a day , Taking Losartan Potassium 50 MG Tablet 1 tablet Orally Once a day , Taking Pravastatin Sodium 20 MG Tablet 1 tab(s) orally once a day (at bedtime) , Taking Chlorthalidone 25 MG Tablet 1 tablet in the morning with food Orally , Not-Taking Aspirin 81 MG Tablet Delayed Release 1 tab orally at bedtime , Discontinued Doxycycline Hyclate 100 MG Capsule 1 capsule Orally Two times a day , Discontinued Promethazine-DM 6.25-15 MG/5ML Syrup 5-10 ml Orally every 6 hrs prn , Medication List reviewed and reconciled with the patient * Allergies: P enicillins: rash. Objective: * Vitals: W t:148.0, Temp:97.8, BP:144/60, HR:59, O2 Sat:98% on RA, Nurse:LEXII, Ht: 64.25, BMI:25.20. * Examination: G eneral Examination: General Appearance: [...] ssential hypertension - I10 (Primary) 2 . R enal insufficiency - N28.9? 3. O steoporosis - M81.0 4 . C ardiac dysrhythmia, unspecified - I49.9 Plan: * Treatment: Value Reference Range A /G Ratio 1.9 1.1-2.5 - * A lbumin 4.3 3.5-5.3 - g/dL * A lkaline Phosphatase 81 35-121 - IU/L * A LT (SGPT) 9 <5-47 - IU/L * A ST (SGOT) 16 <5-40 - IU/L * B ilirubin, Total 0.5 <0.2-1.2 - mg/dL * B UN 33 H 8-23 - mg/dL * C alcium 9.6 8.6-10.4 - mg/dL * C hloride 108 97-108 - mmol/L * C O2 26 22-32 - mmol/L * C reatinine 1.15 H 0.50-1.00 - mg/dL * G lucose 93 65-99 - mg/dL * P otassium 4.3 3.5-5.3 - mmol/L * S odium 143 135-145 - mmol/L * P rotein 6.6 6.0-8.3 - g/dL * e GFR by Creatinine 47 L >59 - mL/min/1.73m2 * Db Garciaia 10/11/2024 08:4 4:06 AM > See phone encounter 2.?Renal insufficiency?LAB: CBC Venipuncture (in house) (Collection Date & Time - 10/10/2024)? Normal* Value Reference Range w bc 8.1 3.5 - 10 * l ymph 17.9% 15 - 50 * m id 5.5% 2 - 15 * g ran 76.6% 35 - 80 * r bc 4.02 3.5 - 5.5 * h gb 12.6 11.5 - 16.5 * h ct 36.7 35 - 55 * m cv 91.2 75 - 100 * m ch 31.4 25 - 35 * m chc 34.4 31 - 38 * p latlet 277 100 - 400 * Yuliet Ramirez 10/10/2024 12:18:1 7 PM > Lina Garcia 10/11/2024 08:44:06 AM > See phone encounter 3.?Osteoporosis? Start Risedronate Sodium Tablet, 35 MG, 1, Orally, once a week, 4, Refills 5.?Imaging: DEXA Hip and Spine (Performed Date - 11/02/2024)?osteopenia* Value Reference Range D exa results osteopenia * StephanieFreya 10/10/2024 1:51: 07 PM > faxed to [facility] Scheduling Adele Moreno 02/24/2025 12:21:58 PM EDT > See phone encounter 4.?Cardiac dysrhythmia, unspecified? Refill Clopidogrel Bisulfate Tablet, 75 MG, 1 tablet, Orally, Once a day, 30 days, 30 Tablet, Refills 4.??5.?Others? Refill Esomeprazole Magnesium Capsule Delayed Release, 40 MG, 1 cap(s), orally, once a day, 30, Refills 4.?? * Procedure Codes: G 2211 Complex e/[place], [address] CBC WITH AUTO DIFF, 12177 VENIPUNCT, ROUTINE*, 3077F SYST BP = 140 MM HG6 IT, 3078F DIAST BP < 80 MM HG * Follow Up: 4 Months * Images: Billing Information: * Visit Code: 46981 Office Visit, Est Pt., Level 4. * Procedure Codes: G2211 Complex e/[place]. [address] CBC WITH AUTO DIFF. 59059 VENIPUNCT, ROUTINE*. 3077F SYST BP = 140 MM HG6 IT. 3078F DIAST BP < 80 MM HG. * Electronic signature of Elvie Duke MD on 05/15/2025 at 09:03 AM EDT Sign off status: Pending * Provider: Elvie Duke M.D. Date: 0 10/10/2024 Generated for Pascual gray/Milo/Surendra on: 1 09:03 AM EDT History and Physical Notes * [...]
--- OUTSIDE RECORDS SUMMARY | 2025-02-10 07:30 | XMS_ITS ---
Author Organization [facility] Address [address] [place], [place] [address] Care Team Providers Care Slabber Light Name Role Phone Elvie Duke Primary Care [...] 40 Performing Lab: Notes/Report: Test performed by [facility] [address] [place] [address] [place] [address] Dane Kerr MD, Marketing Rotation Associate CLIA: [id number] Sodium 141 135-145 mmol/L Potassium 4.2 3.5-5.3 mmol/L Chloride 105 97-108 mmol/L CO2 25 20-32 mmol/L Glucose 88 65-99 mg/dL BUN 36 8-23 mg/dL Creatinine 1.31 0.50-1.00 mg/dL Calcium 9.5 8.6-10.4 mg/dL eGFR by Creatinine 40 >59 mL/min/1.73m2 P-Lipid Panel Reviewed date:02/24/2025 12:22:07 PM Interpretation:Normal Performing Lab: Notes/Report: Test performed by [facility] [address] [place] [address] 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 ; Renal insufficiency N28.9 ; Cardiomyopathy I42.9 ; Supraventricular tachycardia, nonsustained I47.9 ; Hyperlipidemia, unspecified E78.5 and BMI 25.0-25.9,adult Z68.25 Assessments Encounter Date Diagnosis (ICD Code) Assessment Notes Treatment Notes Treatment Clinical Notes Section Notes 02/10/2025 Essential hypertension (ICD-10 - I10) b 02/10/2025 Athscl heart disease of [place] coronary artery w/o ang pctrs (ICD-10 - [...] Robb er, 06/19/2025 10:00:00 AM, [address] [facility] [address], [address] [place] [address], [phone], Progress Notes * LEW, LELYNDONDOB: (84 yo F)Acc No.[id number]:02/10/2025 Progress Notes Patient: SIRENA CHRISTIANSEN Provider: Elvie Duke M.D. :1940 A ge:84 Y S ex:Female Date:02/10/2025 [facility] Subjective: * Chief Complaints: * 1 . 4 month f/u. 2. Needs labs. * HPI: H PI: Patient is here today for P t here for a f/u. Pt is fasting. Pt states she does need [facility]. P t has no other concerns today. [...] Supraventricular Tachycardia, nonsustained, Athscl Heart Disease of [place] Coronary Artery w/o ang PCTRS, Essential Hypertension, Pure Hypercholesterolemia, Cardiomyopathy, Hyperlipidemi, Vitamin D Deficiency, Shingrix #1, 12/2018, Covid Vaccines, [facility], 10/03/2020 , Adenomyomatosis of the GB, 04/23/22 EF= 45-50%. * Surgical History: A ppendectomy , RT Ovary Cyst Removal , Heart Cath, Stent Placement, [facility], Dr. Souza 09/07/2014, Holter with one fourteen [...] 2 . 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 R enal insufficiency - N28.9 4 . C ardiomyopathy - I42.9 5 . S upraventricular tachycardia, nonsustained - I47.9 6 . H yperlipidemia, unspecified - E78.5 7 .?BMI 25.0-25.9,adult - Z68.25 b Plan: * Treatment: 2. A thscl heart disease of [place] coronary artery w/o ang pctrs Refill Clopidogrel [...] * Images: Billing Information: * Visit Code: 44754 Office Visit, Est Pt., Level 4. * Procedure Codes: G2211 Complex e/m visit add on. 1036F TOBACCO NON-USER. G8420 BMI<30 AND >=22 CALC & DOCU. G8950 PREHTN/HTN BP DOC INDCD F/U DOC. G8752 MOST RECENT SYSTOLIC BP < 140MM HG. G8754 MOST RECENT DIASTOLIC BP < 90MM HG. * Electronic signature of Elvie Duke MD on 05/15/2025 at 09:04 AM EDT Sign off status: Pending * Provider: Elvie Duke M.D. Date: 0 02/10/2025 Generated for Pascual gray/Milo/eTransmitting on: 1 09:04 AM EDT History and Physical Notes * HPI (History of Present Illness) Category Sub-Category Detail Notes Category Not es HPI Patient is here today for Pt her e for a f/u. Pt is fasting. Pt states she does need refills sent to [facility]. Pt has no other concerns today Examination [...]
--- OUTSIDE RECORDS SUMMARY | 2025-05-12 04:33 | XMS_ITS ---
Author Organization [facility] Address [address] [facility] [address] [facility] [address] [place] [id number] Care Team Providers Care Staff Consultant Name Role Phone Elvie Duke Primary Care Provider David Jackman [phone] REASON FOR VISIT Test results Encounters Encounter Location Date Provider Diagnosis [facility] [address] [facility] [address] [facility] [address] [place] [id number] 05/12/2025 David Jackman Epigastric abdominal pain R10.13 ; Acute pancreatitis, unspecified complication status, unspecified pancreatitis type K85.90 and Elevated LFTs R79.89 Assessments Encounter Date Diagnosis (ICD Code) Assessment Notes Treatment Notes Treatment Clinical Notes Section Notes 05/12/2025 Epigastric abdominal pain (ICD-10 - R10.13) 05/12/2025 Acute pancreatitis, unspecified complication status, unspecified pancreatitis type (ICD-10 - K85.90) 05/12/2025 Elevated LFTs (ICD-10 - R79.89) Plan Of Treatment Pending Test Test Name Order Date Ultrasound : Abdomen 05/12/2025 Next Appt Details Provider Name:Elvie Robb er, 06/19/2025 10:00:00 AM, [address] [facility], [address], [place], [id number], Progress Notes * SIRENA HACKETTDOB: (84 yo F)Acc No.[id number]:05/12/2025 Patient: Brianna JOHANSENMARCI SIRENA :1940 A ge:84 Y S ex:Female Address:[facility] [address], [place] [address] Subjective: * Chief Complaints: * T est results * Medical History: * Surgical History: * Hospitalization/Major Diagno stic Procedure: * Medications: Objective: * Vitals: * Physical Examination: Assessment: * Assessment: 1. E pigastric abdominal pain - R10.13 (Primary) 2 . A cute pancreatitis, unspecified complication status, unspecified pancreatitis type - K85.90 3 . E levated LFTs - R79.89 Plan: * Treatment: 2.?Acute pancreatitis, unspecified complication status, unspecified pancreatitis type?Imaging: Ultrasound : Abdomen* Freya Brown 05/12/2025 09: 22:38 AM EDT > patient needs RIOS; either this afternoon after lunch or Thursday; faxed to [facility] Scheduling 3.?Elevated LFTs?Imaging: Ultrasound : Abdomen* Freya Brown 05/12/2025 09: 22:38 AM EDT > patient needs RIOS; either this afternoon after lunch or Thursday; faxed to [facility] Scheduling * Procedure Codes: * true * Date: Generated for Pascual gray/Milo/eTransmitting on: 09:03 AM EDT
--- NOTE | 2025-05-15 08:59 | US_ITS ---
FINAL REPORT TECHNIQUE: Sonographic images of the abdomen were obtained in all four quadrants. CLINICAL HISTORY: EPIGASTRIC ABD PAIN, ACUTE PANCREATITIS, ELEVATED LFTs FINDINGS: LIVER: Homogeneous. No focal hepatic lesion. Intrahepatic biliary dilatation noted. GALLBLADDER: No gallstones. Gallbladder is mildly distended. Gallbladder wall thickening is noted. No pericholecystic fluid. The common duct measures 10 mm, this is dilated for patient's age. PANCREAS: Unremarkable. RIGHT KIDNEY: 10.1 cm. No hydronephrosis. Upper pole cyst.. LEFT KIDNEY: 7.7 cm. No hydronephrosis. Lower pole cyst.. SPLEEN: 10.5 cm. No focal splenic lesion. AORTA/IVC: No abdominal aortic aneurysm. Visualized IVC within normal limits. OTHER: No ascites. IMPRESSION: Intra and extrahepatic biliary ductal dilatation. Distal obstructing stone not excluded. Consider MRCP. Distended gallbladder with wall thickening. Acalculous cholecystitis not excluded. Bilateral renal cysts. Reviewed, Interpreted and Dictated by Sangeetha Champion MD Transcribed by Verónica Arreaga Authenticated and [facility]
--- OUTSIDE RECORDS SUMMARY | 2025-05-15 09:03 | XMS_ITS | Clinical Summary ---
Author Organization [employer] ([place], [place], [place], [place]) Address [address] [place] [address] Care Team Providers Care Wood Grinder Operator Name Role Phone Hilario Duke MD Primary Care Provider + [phone] Allergies Active Allergy Reactions Criticality Noted Date Comments Penicillin 12/30/2022 Medications metoprolol succinate (TOPROL-XL) 25 MG 24 hr tablet Take 1 tablet (25 mg total) by mouth daily Take 1 tab in pm nd 0.5 tab in am. 11/26/2022 Active losartan (COZAAR) 50 MG tablet Take by mouth daily. 12/17/2022 Active pravastatin (PRAVACHOL) 20 MG tablet Take by mouth nightly. 12/05/2022 Active ezetimibe (ZETIA) 10 mg tablet Take by mouth daily. 2022 Active clopidogreL (PLAVIX) 75 mg tablet Take by mouth daily. 12/17/2022 Active esomeprazole (NexIUM) 40 MG capsule Take 1 capsule (40 mg total) by mouth daily as needed. Active chlorthalidone (HYGROTON) 25 MG tablet Take 1 tablet (25 mg total) by mouth daily. 05/02/2024 Active Active Problems Problem Noted Date Diagnosed Date Left bundle branch block 01/01/2023 Arteriosclerosis of coronary artery 05/08/2021 Hyperlipidemia 05/08/2021 Hypertension 05/08/2021 Palpitations 11/20/2020 Encounters Date Type Department Care Team Description 03/03/2025 2:30 PM EDT Office Visit [facility] Cardiology [address] [place] [phone] Swati Che G, MANUSCRIPTS CURATOR Arteriosclerosis of coronary artery (Primary Dx); Primary hypertension; Left bundle branch block; Mixed hyperlipidemia 03/03/2025 Travel from Last 3 Months Immunizations Immunization Administration Dates Next Due Influenza, High Dose 05/03/2019,04/19/2018 SHINGLES VARICELLA (ZOSTAVAX) ZOSTER 05/30/2013 Tdap 01/20/2017 Social History Tobacco Use Types Packs/Day Years Used Date Smoking Tobacco: Never Smokeless Tobacco: Never Tobacco Cessation:Counseling Given: Not Answered Employment Answer Date Recorded Help finding and keeping a job Not on file 0 08/14/2023 Family and Community Support Answer Bran e Recorded Help with Day to Day Activities Not on file 08/14/2023 Feeling Lonely or Isolated Not on file 08/14 Educational Attainment Answer Date Gurinder rded Speak language other than Vincentian at home Not on file 08/14/2023 Want help with school or training Not on file 08/14/2023 Substance Use Answer Date Recorded Used prescription meds for non-medical reasons N ot on file 08/14/2023 Used illegal drugs past 12 months Not on file 08/14/2023 Comments Unknown Sex and Gender Information Value Date Recorded Sex Assigned at Not on file Legal Sex Female 5:09 PM CDT Gender Identity Not on file Sexual Orientation Not on file Last Filed Vital Signs Vital Sign Reading Time Taken Comments Blood Pressure 124/60 03/03/2025 3:02 PM EDT Pulse 66 03/03/2025 3:02 PM EDT Temperature - - Respiratory Rate - - Oxygen Saturation 96% 03/25/2024 2:51 PM EDT Inhaled Oxygen Concentration - - Weight 68.5 kg (151 lb) 03/03/2025 3:02 PM EDT Height 165.1 cm (5' 5 ) 03/03/2025 3:02 PM EDT Body Mass Index 25.13 03/03/2025 3:02 PM EDT Plan of Treatment Upcoming Encounters Date Type Department Care Team (Late st Contact Info) Description 07/28/2025 2:00 PM EST Office Visit [facility]iology [address] [place] [phone] Swati Che G, MANUSCRIPTS CURATOR [address] [place] [address] [address] [place] [address] Health Maintenance Due Date Last Done Comments DXA SCAN 1940 Depression Screening (12+) 1952 Pneumococcal 50+ years (1 of 2 - PCV) 12/27/1959 Shingles Vaccine (Zoster) (2 of 2) 07/25/20132012 Respiratory Syncytial Virus (RSV) Adult or (1 - 1-dose 75+ series) 12/27/2015 Medicare Initial AWV G0438 08/04/2018 Falls Risk Screening 08/03/2024 COVID-19 VACCINE (6 - 2024-2 6 season) 2025 05/07/2022, 11/13/2021, 06/05/2021, Additional history exists Influenza Vaccine (#1) 2025 05/03/2019, 2017 Tobacco Cessation Counseling and Screening (12+) 05/05/2025 05/05/2024 DTAP/TDAP/TD VACCINES (2 - T d or Tdap) 01/20/2027 01/20/2017 Procedures Procedure Name Priority Date/Time Associated Diagnosis Comments FS_MODEL_IP_ECG 12-LEAD Routine 03/17/2025 12:55 PM EDT Arteriosclerosis of coronary artery Primary hypertension from Last 3 Months Results * ECG 12 lead (03/17/2025 12:55 PM EDT) [facility] ECG ORDERABLES Final Result from Last 3 Months Insurance Care Teams Wood Grinder Operator Relationship Specialty Start Date End Date Hilario Duke MD [address] [facility] [address] [place] [address] PCP - General Neurology 11/11/22
--- OUTSIDE RECORDS SUMMARY | 2025-05-15 09:03 | XMS_ITS | Patient Health Record ---
Author Organization [facility] Address [address] [place] [address] Care Team Providers Care Photograph Retoucher Name Role Phone Elvie Duke Primary Care Provider [phone] David Jackman Unavailable [phone] Aarti Shook Unavailable [phone] Allergies Allergen (clinical drug ingredient) Drug/Non Drug Allergy documented on EMR Reaction Allergy Type Onset Date Status Substance with penicillin structure and antibacterial mechanism of action (substance) Penicillins rash Drug Allergy Active Results Component Value Reference Range Notes proBrain Natriuretic Peptide Reviewed date:05/12/2025 08:40:07 AM Interpretation:837 Performing Lab: Notes/Report: Test performed by [facility] [address] [place], [place] [address] [address], [place] [address] Dane Kerr MD, Orthopedic Specialist CLIA: [id number] proBrain Natriuretic Peptide 837 <300 pg/mL Please note the updated reference range values which are stratified by age. Positive >1800 pg/mL Indeterminate 300-1800 pg/mL Negative<300 pg/mL P-Microalbumin/Creatinine, R andom Urine Sample Reviewed date:05/12/2025 08:40:07 AM Interpretation:Normal Performing Lab: Notes/Report: Test performed by [facility] [address] [place], [place] [address] [address], [place] [address] Dane Kerr MD, Orthopedic Specialist CLIA: [id number] Albumin/Creatinine Ratio, Urine 21 0-30 ug/mg Microalbumin, Urine, Random 1.9 Creatinine, Urine 90.7 P-TSH reflex to FT4 Reviewed date:05/12/2025 08:40:07 AM Interpretation:Normal Performing Lab: Notes/Report: Test performed by [facility] , [address], [place] [address] Dane Kerr MD, Orthopedic Specialist CLIA: [id number] TSH reflex to FT4 2.40 0.43-5.25 mU/L P-Parathyroid Hormone (PTH) Intact Reviewed date:05/12/2025 08:40:07 AM Interpretation:Normal Performing Lab: Notes/Report: Test performed by [facility] , [address], [place] [address] Dane Kerr MD, Orthopedic Specialist CLIA: [id number] Parathyroid Hormone (PTH) Intact 35.8 15.0-65.0 pg/mL P-Phosphorus Reviewed date:05/12/2025 08:40:06 AM Interpretation:Normal Performing Lab: Notes/Report: Test performed by [facility] , [address], [place] [address] Dane Kerr MD, Orthopedic Specialist CLIA: [id number] Phosphorus 3.9 2.5-4.5 mg/dL P-Magnesium Reviewed date:05/12/2025 08:40:06 AM Interpretation:Normal Performing Lab: Notes/Report: Test performed by [facility] [address] , [address], [place] [address] Dane Kerr MD, Orthopedic Specialist CLIA: [id number] Magnesium 2.3 1.6-2.4 mg/dL P-Lipase Reviewed date:05/12/2025 08:40:06 AM Interpretation:399 Performing Lab: Notes/Report: Test performed by [facility] [address] , [address], [place] [address] Dane Kerr MD, Orthopedic Specialist CLIA: [id number] Lipase 399.0 13.0-60.0 U/L P-Comprehensive Metabolic Pa yuri (CMP) Reviewed date:05/12/2025 08:40:06 AM Interpretation:gluc 104, bun 36, Cr 1.37, gfr 38m alk phos 572, alt 187, ast 147, bili 1.5 Performing Lab: Notes/Report: Test performed by [facility] [address] [place] [address] , [address], [place] [address] Dane Kerr MD, Orthopedic Specialist CLIA: [id number] Sodium 139 135-145 mmol/L Potassium 4.6 3.5-5.3 [...] 1.5 <0.2-1.2 mg/dL A/G Ratio 1.6 1.1-2.5 P-Amylase Reviewed date:05/12/2025 08:40:06 AM Interpretation:181 Performing Lab: Notes/Report: Test performed by [facility] [address] [place] [address] , [address], [place] [address] Dane Kerr MD, Orthopedic Specialist CLIA: [id number] Amylase 181 28-100 U/L CBC Venipuncture (in house) Reviewed date:05/12/2025 08:40:07 [...] - 38 platlet 317 100 - 400 P-Lipid Panel Reviewed date:02/24/2025 12:22:07 PM Interpretation:Normal Performing Lab: Notes/Report: Test performed by [facility] [address] [place] [address] , [place] [address] Dane Kerr MD, Orthopedic Specialist IA: [id number] Cholesterol 114 <200 mg/dL Triglycerides 77 <150 [...] Results: 52 Units: mg/dL % Change: -1% P-Basic Metabolic Panel (BMP ) Reviewed date:02/24/2025 12:22:07 PM Interpretation:bun 36, Cr 1.31, gfr 40 Performing Lab: Notes/Report: Test performed by [facility] [address] [place] [address] , [address], [place] [address] Dane Kerr MD, Orthopedic Specialist CLIA: [id number] Sodium 141 135-145 mmol/L Potassium 4.2 3.5-5.3 mmol/L Chloride 105 97-108 mmol/L CO2 25 20-32 mmol/L Glucose 88 65-99 mg/dL BUN 36 8-23 mg/dL Creatinine 1.31 0.50-1.00 mg/dL Calcium 9.5 8.6-10.4 mg/dL eGFR by Creatinine 40 >59 mL/min/1.73m2 DEXA Hip and Spine Reviewed date:02/24/2025 12:22:07 PM Interpretation:osteopenia Performing Lab: Notes/Report: osteopenia Dexa results osteopenia P-Comprehensive Metabolic Pa yuri ([facility] Reviewed date:10/11/2024 08:44:13 AM Interpretation:bun 33, Gr 1.15, gfr 47 Performing Lab: Notes/Report: Test performed by [facility] [address] [place] [address] [address], [place] [address] Dane Kerr MD, Orthopedic Specialist CLIA: [id number] Sodium 143 135-145 mmol/L Potassium 4.3 3.5-5.3 [...] 0.5 <0.2-1.2 mg/dL A/G Ratio 1.9 1.1-2.5 CBC Venipuncture (in house) Reviewed date:10/11/2024 08:44:13 [...] - 38 platlet 277 100 - 400 P-Basic Metabolic Panel (BMP ) Reviewed date:06/02/2024 12:52:18 PM Interpretation:bun 35, Cr 1.3, gfr 41 Performing Lab: Notes/Report: Test performed by [facility], [address] , [address], [place] [address] Dane Kerr MD, Orthopedic Specialist CLIA: [id number] Sodium 141 135-145 mmol/L Potassium 4.2 3.5-5.3 mmol/L Chloride 105 97-108 mmol/L CO2 26 22-32 mmol/L Glucose 90 65-99 mg/dL BUN 35 8-23 mg/dL Creatinine 1.30 0.50-1.00 mg/dL Calcium 9.5 8.6-10.4 mg/dL eGFR by Creatinine 41 >59 mL/min/1.73m2 Reason For Referral No Information Medications Medication SIG (Take, Route, Frequency, Duration) Notes Start Date End Date Status Nitrostat 0.3 MG 1 tab(s) sublinguall y every 5 minutes as needed Active Risedronate Sodium 35 MG 1 Orally [...] orally on ce a day 05/16/2015 Active Chlorthalidone 25 MG 1 tablet in the mor emilee with food Orally Active Metoprolol Succinate ER 25 MG 1 in AM, 1 in PM twice a day Active Losartan Potassium 50 MG 1 tablet Orally Once a day Active Immunizations Vaccine Route Administration Date Status Comme nts Zostavax Unknown 05/30/2013 Administered xUzqhdpf-vrlfkiqhy-ogzkqfi e pts. IM Intramuscular 05/25/2012 Administered xFluzone High Dose-private (65yr&older) Unknown 05/03/2019 Administered xFlu shot-36 months and older IM Intramuscular 06/11/2009 Administered Tetanus Tdap-Adacel (over 7yrs) IM Intramuscular 01/20/2017 Administered Prevnar (PCV13) IM Intramuscular 01/15/2015 Administered PNEUMOVAX 23 VACCINE IM Intramuscular 05/25/2012 Administe red Fluzone High Dose (65yr and older) IM Intramuscular 04/19/2018 Administered COVID 19 Moderna Unknown 09/05/2020 Administered COVID 19 Moderna IM Intramuscular 10/03/2020 Administered COVID 19 Moderna Unknown 06/05/2021 Administered COVID 19 Moderna Unknown 11/13/2021 Administered Problems Problem Type SNOMED Code ICD Code Onset Dates Problem Status W/U Status Risk Notes Problem Vitamin D deficiency (69848056) Vitamin D deficiency (E55.9) Active confirmed Problem Essential hypertension (92727125) Essential hypertension (I10) Active confirmed Problem Hyperlipidemia (39627122) Hyperlipidemia, unspecified (E78.5) Active confirmed Problem Gastroesophageal reflux disease (432831318) GERD without esophagitis (K21.9) Active confirmed Problem History of polyp of colon (situation) (292649199) History of colon polyps (Z86.010) Active confirmed Problem Sciatica (74678896) Sciatica of right side (M54.31) Active confirmed Problem Renal insufficiency (983324974) Renal insufficiency (N28.9) Active confirmed Problem Osteoporosis (98225408) Osteoporosis (M81.0) Active confirmed Problem Nonsustained paroxysmal supraventricular tachycardia (7891485431266) Supraventricular tachycardia, nonsustained (I47.9) Active confirmed Problem Atherosclerosis of coronary artery without angina pectoris (554846862782603) Athscl heart disease of [place] coronary artery w/o ang pctrs (I25.10) Active confirmed Problem Cardiomyopathy (45184690) Cardiomyopathy (I42.9) Active confirmed Problem Cardiac dysrhythmia (046655606) Cardiac dysrhythmia, unspecified (I49.9) Active confirmed Problem Pure hypercholesterolemia (075684273) Pure hypercholesterolemia (E78.00) Active confirmed Problem Fibrocystic breast changes (79857134) Fibrocystic breast disease, left (N60.12) Active confirmed Problem Epigastric fullness (0618913) Epigastric fullness (R19.06) Active confirmed Problem Chronic kidney disease stage 3B (disorder) (373167738) Stage 3b chronic kidney disease (CKD) (N18.32) Active confirmed Vital Signs Heart Rate 66 /min 05/11/2025 Blood pressure diastolic 52 mm Hg 05/11/2025 Height 64.25 in 05/11/2025 Blood pressure systolic 122 mm Hg 05/11/2025 Weight 147.2 lbs 05/11/2025 BMI 25.07 kg/m2 05/11/2025 Encounters Encounter Location Date Provider Diagnosis [facility] [address] [facility] [address], [place] [phone] 05/30/2024 Elvie Duke Essential hypertensi on I10 ; Cardiac dysrhythmia, unspecified I49.9 ; Hyperlipidemia, unspecified E78.5 and Renal insufficiency N28.9 [facility] [address] [facility] [address] [place], [place] [id number] 10/10/2024 Elvie Duke Essential hypertensi on I10 ; Renal insufficiency N28.9 ; Osteoporosis M81.0 and Cardiac dysrhythmia, unspecified I49.9 [facility] [address] [facility] [address] [place], [place] [id number] 02/10/2025 Elvie Duke Essential hypertensi on I10 ; Athscl heart disease of [place] coronary artery w/o ang pctrs I25.10 ; Renal insufficiency N28.9 ; Cardiomyopathy I42.9 ; Supraventricular tachycardia, nonsustained I47.9 ; Hyperlipidemia, unspecified E78.5 and BMI 25.0-25.9,adult Z68.25 [facility] [address] [facility] [address] [place], [place] [id number] 04/24/2025 Aarti Shook Essential hypertensi on I10 and BMI 25.0-25.9,adult Z68.25 [facility] [address] [facility] [address] [place], [place] [id number] 05/11/2025 [place] Essential hypertensi on I10 ; SOB (shortness of breath) R06.02 ; Stage 3b chronic kidney disease (CKD) N18.32 ; Other fatigue R53.83 ; Cardiomyopathy I42.9 and Epigastric abdominal pain R10.13 [facility] [address] [facility] [address] [place], [place] [id number] 06/02/2024 Elvie Hilario Srikanth [facility] [address] [facility] [address] [place] [id number] 09/07/2024 Elvie Duke [facility] [address] [facility] [address] [place] [id number] 10/11/2024 Elvie Rich Srikanth [facility] [address] [facility] [address] [place] [id number] 02/24/2025 Elvie Rich Srikanth [facility] [address] [facility] [address] [place], [place] [id number] 05/12/2025 [place] Epigastric abdominal pain R10.13 ; Acute pancreatitis, unspecified complication status, unspecified pancreatitis type K85.90 and Elevated LFTs R79.89 Assessments Encounter Date Diagnosis (ICD Code) Assessment Notes Treatment Notes Treatment Clinical Notes Section Notes 05/30/2024 Essential hypertension (ICD-10 - I10) continue current therapy 05/30/2024 Cardiac dysrhythmia, unspecified (ICD-10 - I49.9) 10/10/2024 Essential hypertension (ICD-10 - I10) 10/10/2024 Renal insufficiency (ICD-10 - N28.9) 02/10/2025 Essential hypertension (ICD-10 - I10) b 02/10/2025 Athscl heart disease of [place] coronary artery w/o ang pctrs (ICD-10 - I25.10) b 04/24/2025 Essential hypertension (ICD-10 - I10) will increase metoprolol to 25 mg bid; she will continue to monitor BP at home 04/24/2025 BMI 25.0-25.9,adult (ICD-10 - Z68.25) 05/11/2025 Essential hypertension (ICD-10 - I10) 05/11/2025 SOB (shortness of breath) (ICD-10 - R06.02) 05/12/2025 Epigastric abdominal pain (ICD-10 - R10.13) 05/12/2025 Acute pancreatitis, unspecified complication status, unspecified pancreatitis type (ICD-10 - K85.90) 05/11/2025 Stage 3b chronic kidney disease (CKD) (ICD-10 - N18.32) 05/12/2025 Elevated LFTs (ICD-10 - R79.89) 02/10/2025 Renal insufficiency (ICD-10 - N28.9) b 10/10/2024 Osteoporosis (ICD-10 - M81.0) 05/30/2024 Hyperlipidemia, unspecified (ICD-10 - E78.5) 05/30/2024 Renal insufficiency (ICD-10 - N28.9) 10/10/2024 Cardiac dysrhythmia, unspecified (ICD-10 - I49.9) 02/10/2025 Cardiomyopathy (ICD-10 - I42.9) b 05/11/2025 Other fatigue (ICD-10 - R53.83) 02/10/2025 Supraventricular tachycardia, nonsustained (ICD-10 - I47.9) b 05/11/2025 Cardiomyopathy (ICD-10 - I42.9) 05/11/2025 Epigastric abdominal pain (ICD-10 - R10.13) 02/10/2025 Hyperlipidemia, unspecified (ICD-10 - E78.5) b 02/10/2025 BMI 25.0-25.9,adult (ICD-10 - Z68.25) b Plan Of Treatment Pending Test Test Name Order Date Ultrasound : Abdomen 05/12/2025 Echocardiogram 05/11/2025 P-BNP (Brain Natriuretic Peptide) 2024 Next Appt Details Provider Name:Elvie Robb er, 06/19/2025 10:00:00 AM, [address], [place], [place], [id number], Insurance Providers Payer Name Payer Address Payer Phone Subscriber Number Group Number Insured Name Patient Relationship to Insured Coverage Start Date Coverage End Date [employer] (MEDICAR E) [address] [address] [place] [address] [id number] LEWSIRENA COVARRUBIAS Self - patient is the insured Medical (General) History Medical History History ICD Code ZostaVax 05/30 Heart Cath, EF=50-60%, 08/28/2015 Osteopenia of Multiple Sites Supraventricular Tachycardia, nonsustain ed Athscl Heart Disease of [place] Coronary Artery w/o ang PCTRS Essential Hypertension Pure Hypercholesterolemia Cardiomyopathy Hyperlipidemi Vitamin D Deficiency Shingrix #1, 12/2018 Covid Vaccines, Genet HD, 10/03/2020 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, Dr. Souza 09/07/2014 Holter with one fourteen beat run of SVT 05/16/2015 Colonoscopy, Dr. Daniels 02/2020
--- OUTSIDE RECORDS SUMMARY | 2025-05-15 09:03 | XMS_ITS | Referral Summary ---
Author Organization [employer] ([place], [place], [place], [place]) Address [address] [place] [address] Care Team Providers Care Cart Pusher Name Role Phone Hilario Duke MD Primary Care Provider + [phone] Encounters Date Type Department Care Team Description 03/03/2025 Travel 03/03/2025 2:30 PM EDT Office Visit [facility] Cardiology [address] [place] [address] Swati Che APRN Arteriosclerosis of coronary artery (Primary Dx); Primary hypertension; Left bundle branch block; Mixed hyperlipidemia from Last 3 Months Allergies Active Allergy Reactions Criticality Noted Date [...] 05/08/2021 Hyperlipidemia 05/08/2021 Hypertension 05/08/2021 Palpitations 11/20/2020 Immunizations Immunization Administration Dates Next Due Influenza, [...] Date Gurinder rded Speak language other than Mauritian at home Not on file 08/14/2023 Want [...] Description 07/28/2025 2:00 PM EST Office Visit [facility] Cardiology [address] [place] [address] Swati Che APRN [address] [facility] [address] [place] [id number] Procedures Procedure Name Priority Date/Time Associated Diagnosis Comments FS_MODEL_IP_ECG 12-LEAD Routine 03/17/2025 12:55 PM EDT Arteriosclerosis of coronary artery Primary hypertension from Last 3 Months Results * ECG 12 lead (03/17/2025 12:55 PM EDT) [facility] ECG ORDERABLES Final Result from Last 3 Months Insurance [employer] MEDICARE PPO Care Teams Cart Pusher Relationship Specialty Start Date End Date Hilario Duke MD [address] [facility] [address] [place] [address] PCP - General Neurology 11/11/22
== END 2025-05-15 23:59 | disposition home or self-care (01) ==
LOC: RAD 08:55
PROVIDERS: PCP Family Medicine; Visit Provider Family Medicine
DX: K82.8 Other specified diseases of gallbladder (principal); K83.8 Other specified diseases of biliary tract; N28.1 Cyst of kidney, acquired; K85.90 Acute pancreatitis without necrosis or infection, unspecified; R10.13 Epigastric pain; R79.89 Other specified abnormal findings of blood chemistry
CPT/HCPCS: 76700

== ENCOUNTER 2025-05-17 14:12 | Outpatient (CLI) | payer MEDICARE, SELFPAY ==
--- NOTE | 2025-05-17 14:15 | CA_ITS ---
APPROVED REPORT EXAM: Comprehensive 2D, Doppler, and color-flow Echocardiogram Rehabilitation Tech: Christen Ruiz RVT Ht: 5 ft 5 in Wt: 147lbs BSA: 1.74 BP: 156/117 mmHg Indications: SHORTNESS OF BREATH,EDEMA 2D Dimensions IVSd 1.48 cm F: 0.6-1.0 LVEF (Visual) 49.20 % PWd 0.91 cm F: 0.6 - 1.0 LA Volume 45.20 mL LVDd 4.45 cm F: 3.9 - 5.3 LA Volume Index 25.98 mL/m2 (M/F) 16-34 LVDs 3.35 cm F: 2.2 - 3.5 M-Mode Dimensions LA Diam 3.66 cm (1.9-4.0) TAPSE 2.59 (<1.7) LV Diastology E Decel Time 327 (160-240 msec) E/A Ratio 0.6 Aortic Valve RAÚL Index 1.34 cm2/m2 AoV Peak Doyle. 123.0 (50-130 cm/s) AI PHT 846.00 ms AO Peak GR. 6.10 mmHg AO Mean GR. 4.00 (<5 mmHg) AO VTI 29.0 (18-25 cm) RAÚL (VTI) 2.38 (2.5-4.5 cm2) Mitral Valve MV E Max Doyle. 65.0 (40-130 cm/s) MV A Velocity 112.0 (40-130 cm/s) E/A Ratio 0.58 MV PHT 96.0 ms Pulmonary Valve PV Peak Velocity 56.0 (50-150 cm/s) Tricuspid Valve TR P. Velocity 246.00 cm/s RAP Estimate 8.00 mmHg RVSP 32.20 mmHg Left Ventricle The left ventricle is normal size. Left ventricular systolic function is normal. The left ventricular ejection fraction is within the normal range. There is increased left ventricular wall thickness. There is mild global hypokinesis present. There is moderate hypokinesis of the mid to distal inferior and inferoseptal LV cuenca. Transmitral Doppler flow pattern suggests impaired LV relaxation. LVEF is 45% Right Ventricle The right ventricle is normal size. The right ventricular systolic function is normal. Atria The left atrium is mildly dilated. The right atrium is mildly dilated. There is no color Doppler evidence of interatrial shunt. Aortic Valve The aortic valve is mildly thickened. There is no hemodynamically significant aortic valvular stenosis. Mild aortic regurgitation is present. Mitral Valve The mitral valve is normal in structure. No evidence of mitral valve stenosis. Mild mitral regurgitation is present. Tricuspid Valve The tricuspid valve leaflets are thin and pliable. Mild tricuspid regurgitation. RVSP is 25-30 mmHg. Pulmonic Valve The pulmonary valve is grossly normal in structure. Trace pulmonic valve regurgitation is present. Great Vessels The aortic root is normal in size. IVC is normal in size and collapses >50% with inspiration. Pericardium There is no pericardial effusion. Conclusion Mildly reduced LV systolic function (LVEF 45%). Moderate hypokinesis of the mid to distal inferior and inferoseptal LV cuenca. Mild biatrial dilation. Mild AI, mild MR, mild TR. Electronically signed by : Debbie Fitzgerald MD 05/25/2025 00:07:02
== END 2025-05-17 23:59 | disposition home or self-care (01) ==
LOC: RT 14:13
PROVIDERS: PCP Family Medicine; Visit Provider Family Medicine
DX: I08.3 Combined rheumatic disorders of mitral, aortic and tricuspid valves (principal); I31.39 Other pericardial effusion (noninflammatory); R93.1 Abnormal findings on diagnostic imaging of heart and coronary circulation; I42.9 Cardiomyopathy, unspecified
CPT/HCPCS: 93306

== ENCOUNTER 2025-06-01 09:16 | Outpatient (CLI) | payer MEDICARE, SELFPAY ==
--- OUTSIDE RECORDS SUMMARY | 2024-04-25 12:00 | XMS_ITS ---
Author Organization [facility] Address [address] [place] [id number] Care Team Providers Care Print Binding And Finishing Worker Name Role Phone Elvie Duke Primary Care Provider Tami Avina [phone] Allergies Allergen (clinical drug ingredient) Drug/Non Drug Allergy documented on EMR Reaction Allergy Type Onset Date Status Substance with penicillin structure and antibacterial mechanism of action (substance) Penicillins rash Drug Allergy Active REASON FOR VISIT chest hurting, cough Medications Medication SIG (Take, Route, Frequency, Duration) Notes Start Date End Date Status Pravastatin Sodium 20 MG 1 tab(s) orally once a day (at bedtime); Duration: 90 days Active Losartan Potassium 50 MG 1 tab(s) orally once daily or as directed Active Metoprolol Succinate ER 25 MG take 1 in evening, 1/2 in morning Two times a day Active hydroCHLOROthiazide 25 MG 1 tablet in e morning orally once a day 06/25/2015 Active Clopidogrel Bisulfate 75 MG 1 tablet Ora lly Once a day; Duration: 30 days Active Esomeprazole Magnesium 40 MG 1 cap(s) or ally once a day 09/24/2020 Active Flonase Allergy Relief 50 MCG/ACT 1 spray(s) in each nostril once a day; Duration: 30 day(s) 04/30/2022 Active Promethazine-DM 6.25-15 MG/5ML 5-10 ml O rally every 6 hrs prn 04/25/2024 Active Nitrostat 0.3 MG 1 tab(s) sublinguall y every 5 minutes as needed Active Aspirin 81 MG 1 tab orally at bedtime 07/29/2011 Active Doxycycline Hyclate 100 MG 1 capsule Ora lly Two times a day; Duration: 10 day(s) 04/25/2024 Active Vitamin D (Cholecalciferol) 50 MCG (2000 UT) 1 cap(s) orally once a day 05/16/2015 Active Vitamin B-12 1000 MCG 1 tab(s) orally on ce a day 05/16/2015 Active Zetia 10 MG 1 tab(s) orally once a day Active Vital Signs Blood pressure systolic 150 mm Hg 04/25/20 24 Blood pressure diastolic 60 mm Hg 024 Heart Rate 64 /min 04/25/2024 Height 64.25 in 04/25/2024 Weight 153.4 lbs 04/25/2024 BMI 26.12 kg/m2 04/25/2024 Encounters Encounter Location Date Provider Diagnosis [facility] [address] [facility] [address] [facility] [address] [place] [id number] 04/25/2024 Tami Avina Acute bronchitis J20 .9 Assessments Encounter Date Diagnosis (ICD Code) Assessment Notes Treatment Notes Treatment Clinical Notes Section Notes 04/25/2024 Acute bronchitis (ICD-10 - J20.9) Plan Of Treatment Medication Medication Name Sig Start Date Stop Date Notes Promethazine-DM 6.25-15 MG/5ML 5-10 ml O rally every 6 hrs prn 04/25/2024 Doxycycline Hyclate 100 MG 1 capsule Ora lly Two times a day; Duration: 10 day(s) 04/25/2024 Next Appt Details Follow Up: prn, Reason: Provider Name:Elvie Robb er, 06/19/2025 10:00:00 AM, [address] [facility], [address], [place], [id number], Progress Notes * LEW SIRENADOB: [birth year] (84 yo F)Acc No.[id number]:04/25/2024 Progress Notes Patient: SIRENA CHRISTIANSEN Provider: Tami Avina M.D. :1940 A ge:83 Y S ex:Female Date:04/25/2024 Address:[facility] [address], [id number] Pcp:Elvie Duke Subjective: * Chief Complaints: * 1 . Chest hurting, cough. * HPI: E NT/respiratory: 83 year old female presents with c/o cough P t presents today with c/o continued cough and chest discomfort. Pt saw Dr. Duke on 04/14 for cough and congestion and was given samples of Mucinex DM. Pt sts that she is unable to produce any sputum but has been coughing for about two weeks. Pt sts that she just feels weak and cannot get over this cough. Pt sts that she coughs at night making it hard for her to rest. . * ROS: D ERMATOLOGY: no R lulu. n o H van. G ASTROENTEROLOGY: no N ausea. n o V omiting. n o D iarrhea.? U ROLOGY: no D ifficulty urinating. n o B lood in urine. * Medical History: Z ostaVax 05/30, Heart Cath, EF=50-60%, 08/28/2015, Osteopenia of Multiple Sites, Supraventricular Tachycardia, nonsustained, Athscl Heart Disease of [place] Coronary Artery w/o ang PCTRS, Essential Hypertension, Pure Hypercholesterolemia, Cardiomyopathy, Hyperlipidemi, Vitamin D Deficiency, Shingrix #1, 12/2018, Covid Vaccines, [place] HD, 10/03/2020 , Adenomyomatosis of the GB, 04/23/22 EF= 45-50%. * Surgical History: A ppendectomy , RT Ovary Cyst Removal , Heart Cath, Stent Placement, [place], Dr. Souza 09/07/2014, Holter with one fourteen beat run of SVT 05/16/2015, Colonoscopy, Dr. Daniels 02/2020. * Family History: F ather: . M other: , coronary artery disease. M aternal Grand Father: diagnosed with Cancer. 1 son(s) , 2 daughter(s) . . Brother and sister with CAD. * Social History: C URRENT TOBACCO USE S moking Status: Patient does NOT smoke. C affeine: no. Home smoke detector use: yes. Marital Status: . Past smoking status: no, Smoking status: Does not smoke. Alcohol: No. * Medications: T aking Vitamin B-12 1000 MCG Tablet 1 tab(s) orally once a day , Taking Vitamin D (Cholecalciferol) 50 MCG (2000 UT) Capsule 1 cap(s) orally once a day , Taking Aspirin 81 MG Tablet Delayed Release 1 tab orally at bedtime , Taking Nitrostat 0.3 MG Tablet Sublingual 1 tab(s) sublingually every 5 minutes as needed , Taking Flonase Allergy Relief 50 MCG/ACT Suspension 1 spray(s) in each nostril once a day , Taking Esomeprazole Magnesium 40 MG Capsule Delayed Release 1 cap(s) orally once a day , Taking hydroCHLOROthiazide 25 MG Tablet 1 tablet in the morning orally once a day , Taking Metoprolol Succinate ER 25 MG Tablet Extended Release 24 Hour take 1 in evening, 1/2 in morning Two times a day , Taking Losartan Potassium 50 MG Tablet 1 tab(s) orally once daily or as directed , Taking Pravastatin Sodium 20 MG Tablet 1 tab(s) orally once a day (at bedtime) , Taking Clopidogrel Bisulfate 75 MG Tablet 1 tablet Orally Once a day , Taking Zetia 10 MG Tablet 1 tab(s) orally once a day , Medication List reviewed and reconciled with the patient * Allergies: P enicillins: rash. Objective: * Vitals: W t:153.4, Temp:97.7, BP:150/60, HR:64, O2 Sat:98% on RA, Nurse:ELLYN, Ht: 64.25, BMI:26.12. * Examination: E NT/Respiratory: General Appearance: N AD. E ars: a uditory canals normal bilaterally, TM's WNL. N ose : n ormal, no lesions, nares patent. O ral cavity :? mild erythema of throat. H eart : R RR, normal S1 S2, no murmurs. L ungs: coarse breath sounds, no rales or wheezes. Assessment: * Assessment: 1. A cute bronchitis - J20.9 (Primary) Plan: * Treatment: * Procedure Codes: 9 4760 PULSE OX * Follow Up: p rn * Images: Billing Information: * Visit Code: 84996 Office Visit, Est Pt., Level 3. * Procedure Codes: 21551 PULSE OX. * Electronic signature of Tami Avina MD on 06/01/2025 at 09:35 AM EDT Sign off status: Pending * Provider: Tami Avina M.D. Date: 0 04/25/2024 Generated for Pascual gray/Milo/Surendra on: 1 09:35 AM EDT History and Physical Notes * HPI (History of Present Illness) Category Sub-Category Detail Notes Category Not es ENT/respiratory cough Pt presents toda y with c/o continued cough and chest discomfort. Pt saw Dr. Duke on 04/14 for cough and congestion and was given samples of Mucinex DM. Pt sts that she is unable to produce any sputum but has been coughing for about two weeks. Pt sts that she just feels weak and cannot get over this cough. Pt sts that she coughs at night making it hard for her to rest. Examination Category Sub-Category Detail Notes Category Not es ENT/Respiratory Oral cavity : mild erythema of throat Ears: auditory canals norm al bilaterally, TM's WNL Heart : RRR, normal S1 S2, n o murmurs Lungs: coarse breath sounds , no rales or wheezes General Appearance: NAD Nose : normal, no lesions, nares patent
--- OUTSIDE RECORDS SUMMARY | 2024-05-02 11:15 | XMS_ITS ---
[facility] [address] [place] [id number] Care Team Providers Care Heel Wheeler Name Role Phone Elvie Duke Primary Care Provider [phone] Allergies Allergen (clinical drug ingredient) Drug/Non Drug Allergy documented on EMR Reaction Allergy Type Onset Date Status Substance with penicillin structure and antibacterial mechanism of action (substance) Penicillins rash Drug Allergy Active Reason For Referral Reason EF45-50%, episode of SVT Diagnosis 1 Supraventricular tac hycardia, nonsustained (I47.9) [facility] Referring Provider First Name Elvie Rich Referring Provider Last Name Srikanth Referring Provider Speciality Family Pra ctice Referred Provider Specialty Cardiovascul ar Disease General Notes Freya Brown 05/03/20 24 8:31:15 AM > faxed order to Dr. Singh's office Referral Priority Routine REASON FOR VISIT ER [facility] F/U Heart Medications Medication SIG (Take, Route, Frequency, Duration) Notes Start Date End Date Status Clopidogrel Bisulfate 75 MG 1 tablet Ora lly Once a day; Duration: 30 days Active Zetia 10 MG 1 tab(s) orally once a day Active Doxycycline Hyclate 100 MG 1 capsule Ora lly Two times a day; Duration: 10 day(s) 04/25/2024 Active Promethazine-DM 6.25-15 MG/5ML 5-10 ml Orally every 6 hrs prn 04/25/2024 Active Pravastatin Sodium 20 MG 1 tab(s) orally once a day (at bedtime); Duration: 90 days Active Metoprolol Succinate ER 25 MG take 1 in evening, 1/2 in morning Two times a day Active Losartan Potassium 50 MG 1 tab(s) orally once daily or as directed Active Flonase Allergy Relief 50 MCG/ACT 1 spray(s) in each nostril once a day; Duration: 30 day(s) 04/30/2022 Active Esomeprazole Magnesium 40 MG 1 cap(s) orally once a day 09/24/2020 Active Nitrostat 0.3 MG 1 tab(s) sublinguall y every 5 minutes as needed Active Chlorthalidone 25 MG 1 tablet in the [facility] with food Orally 05/02/2024 Active Vitamin B-12 1000 MCG 1 tab(s) orally on a day 05/16/2015 Active Vitamin D (Cholecalciferol) 50 MCG (2000 UT) 1 cap(s) orally once a day 05/16/2015 Active Aspirin 81 MG 1 tab orally at bedtime 07/29/2011 Active Vital Signs Blood pressure systolic 160 mm Hg 05/02/20 24 Blood pressure diastolic 64 mm Hg 024 Heart Rate 60 /min 05/02/2024 Height 64.25 in 05/02/2024 Weight 152.0 lbs 05/02/2024 BMI 25.89 kg/m2 05/02/2024 Encounters Encounter Location Date Provider Diagnosis [facility] [address] [facility] [address] [id number] 05/02/2024 Elvie Duke Supraventricular tachycardia, nonsustained I47.9 ; Essential hypertension I10 ; Cardiomyopathy I42.9 and Cardiac dysrhythmia, unspecified I49.9 Assessments Encounter Date Diagnosis (ICD Code) Assessment Notes Treatment Notes Treatment Clinical Notes Section Notes 05/02/2024 Supraventricular tachycardia, nonsustained (ICD-10 - I47.9) 05/02/2024 Essential hypertension (ICD-10 - I10) 05/02/2024 Cardiomyopathy (ICD-10 - I42.9) 05/02/2024 Cardiac dysrhythmia, unspecified (ICD-10 - I49.9) Plan Of Treatment Medication Medication Name Sig Start Date Stop Date Notes Chlorthalidone 25 MG 1 tablet in the [facility] with food Orally 05/02/2024 hydroCHLOROthiazide 25 MG 1 tablet in th e morning orally once a day 06/25/2015 Referrals Referral Date Details 05/02/2024 05/02/2024, EF45-50% , episode of SVT Next Appt Details Follow Up: 4 Weeks, Reason: Provider Name:Elvie Robb er, 06/19/2025 10:00:00 AM, [address], [place], [place], [id number], Progress Notes * SIRENA HACKETTDOB: 1 (84 yo F)Acc No.[id number]:05/02/2024 Progress Notes Patient: SIRENA CHRISTIANSEN Provider: Elvie Duke M.D. :1940 A ge:83 Y S ex:Female Date:05/02/2024 Address:[facility] [address] [place] [address] Subjective: * Chief Complaints: * 1 . ER [facility] F/U Heart. * HPI: C ardiology: The patient is here for a follow up from ER due to rapid heart rate, shortness of breath with exertion and weakness. Pt states she is still feeling weak today but the heart rate is doing better. Pt states she is still having the shortness of breath when she does things. Pt states she was advised to take 2 of the Hctz daily for 1 week and to start on Magnesium. 83 year old female presents with c/o Short of Breath. Denies : Chest Pain. D enies : Dizziness. D enies : Palpitations. * ROS: D ERMATOLOGY: no R lulu. n o H van. G ASTROENTEROLOGY: no N ausea. n o V omiting. n o D iarrhea.? U ROLOGY: no D ifficulty urinating. n o B lood in urine. * Medical History: Z ostaVax 05/30, Heart Cath, EF=50-60%, 08/28/2015, Osteopenia of Multiple Sites, Supraventricular Tachycardia, nonsustained, Athscl Heart Disease of [place] Coronary Artery w/o ang PCTRS, Essential Hypertension, Pure Hypercholesterolemia, Cardiomyopathy, Hyperlipidemi, Vitamin D Deficiency, Shingrix #1, 12/2018, Covid Vaccines, [facility] HD, 10/03/2020 , Adenomyomatosis of the GB, 04/23/22 EF= 45-50%. * Surgical History: A ppendectomy , RT Ovary Cyst Removal , Heart Cath, Stent Placement, [facility], Dr. Souza 09/07/2014, Holter with one fourteen [...] tab(s) orally once a day , Taking Doxycycline Hyclate 100 MG Capsule 1 capsule Orally Two times a day , Taking Promethazine-DM 6.25-15 MG/5ML Syrup 5-10 ml Orally every 6 hrs prn , Medication List reviewed and reconciled with the patient * Allergies: P enicillins: rash. Objective: * Vitals: W t:152.0, Temp:97.9, BP:160/64, HR:60, O2 Sat:99% on RA, Nurse:LEXII, Ht: 64.25, Repeat BP:164/60, BMI:25.89. * Examination: G eneral Examination: General Appearance: N AD. H EENT: P ERRLA, left lower lid with some inlammation and some glandular inflammation, Sclera clear. O ral cavity: n o lesions, mucosa moist and WNL, no erythema. N corrie: s upple, no lymphadenopathy. C hest: n ormal shape and expansion. H eart: R SR, no ectopics. L ungs: c lear to auscultation. A bdomen: soft and nontender, no organomegaly or masses. N eurologic Exam:?Intact, gait normal. S kin: n ormal, no rash. P eripheral pulses: n ormal . Back: mild dorsal kyphosis. E xtremities: 3 + leg edema, chronic. ? Assessment: * Assessment: 1. S upraventricular tachycardia, nonsustained - I47.9 (Primary) 2 . E ssential hypertension - I10 3 . C ardiomyopathy - I42.9 4 . C ardiac dysrhythmia, unspecified - I49.9 Plan: * Treatment: 2. E ssential hypertension Start Chlorthalidone Tablet, 25 MG, 1 tablet in the morning with food, Orally, 30, Refills 4. ? * Procedure Codes: 9 4760 PULSE OX * Follow Up: 4 Weeks * Images: Billing Information: * Visit Code: 67479 Office Visit, Est Pt., Level 4. * Procedure Codes: 59804 PULSE OX. * Electronic signature of Elvie Duke MD on 06/01/2025 at 09:34 AM EDT Sign off status: Pending * Provider: Elvie Duke M.D. Date: 0 05/02/2024 Generated for Pascual gray/Milo/Wyattitting on: 09:34 AM EDT History and Physical Notes * HPI (History of Present Illness) Category Sub-Category Detail Notes Category Not es Cardiology Short of Breath Chest Pain Palpitations Dizziness Examination Category Sub-Category Detail Notes Category Not es General Examination HEENT: PERRLA, left lower lid with some inlammation and some glandular inflammation, Sclera clear Heart: RSR, no ectopics Lungs: clear to auscultatio n Abdomen: soft and nontender, no organomegaly or masses Extremities: 3+ leg edema, chroni c General Appearance: NAD Skin: normal, no rash Neurologic Exam: Intact, gait normal Neck: supple, no lymphaden opathy Oral cavity: no lesions, mucosa m oist and WNL, no erythema Peripheral pulses: normal Back: mild dorsal kyphosis Chest: normal shape and exp ansion Consultation Request Notes Referral Date Referring Provider Referred Provider Not es 05/02/2024 Elvie Duke , EF45-50%, episode of SVT
--- OUTSIDE RECORDS SUMMARY | 2024-05-30 05:30 | XMS_ITS ---
Author Organization [facility] Address [address] [facility] [address] [place] [id number] Care Team Providers Care Market Maker Name Role Phone Elvie Duke Primary Care Provider [phone] Allergies Allergen (clinical drug ingredient) Drug/Non Drug Allergy documented on EMR Reaction Allergy Type Onset Date Status Substance with penicillin structure and antibacterial mechanism of action (substance) Penicillins rash Drug Allergy Active Results Component Value Reference Range Notes P-Basic Metabolic Panel (BMP ) Reviewed date:06/02/2024 12:52:18 PM Interpretation:bun 35, Cr 1.3, gfr 41 Performing Lab: Notes/Report: Test performed by [facility] [address] [place] [address] , [address], [place] [address] Dane Kerr MD, Customer Experience Retail Clerk CLIA: [id number] Sodium 141 135-145 mmol/L Potassium 4.2 3.5-5.3 mmol/L Chloride 105 97-108 mmol/L CO2 26 22-32 mmol/L Glucose 90 65-99 mg/dL BUN 35 8-23 mg/dL Creatinine 1.30 0.50-1.00 mg/dL Calcium 9.5 8.6-10.4 mg/dL eGFR by Creatinine 41 >59 mL/min/1.73m2 REASON FOR VISIT 4 month check, Needs labs & flu vaccine Medications Medication SIG (Take, Route, Frequency, Duration) Notes Start Date End Date Status Clopidogrel Bisulfate 75 MG 1 tablet Orally Once a day; Duration: 30 days Active Chlorthalidone 25 MG 1 tablet in the mor emilee with food Orally 05/02/2024 Active Promethazine-DM 6.25-15 MG/5ML 5-10 ml Orally every 6 hrs prn 04/25/2024 Active Doxycycline Hyclate 100 MG 1 capsule Orally Two times a day; Duration: 10 day(s) 04/25/2024 Active Zetia 10 MG 1 tab(s) orally once a day Active Pravastatin Sodium 20 MG 1 tab(s) orally once a day (at bedtime); Duration: 90 days Active Losartan Potassium 50 MG 1 tab(s) orally once daily or as directed Active Metoprolol Succinate ER 25 MG take 1 in evening, 1/2 in morning Two times a day Active Esomeprazole Magnesium 40 MG 1 cap(s) orally once a day 09/24/2020 Active Flonase Allergy Relief 50 MCG/ACT 1 spray(s) in each nostril once a day; Duration: 30 day(s) 04/30/2022 Active Nitrostat 0.3 MG 1 tab(s) sublinguall y every 5 minutes as needed Active Aspirin 81 MG 1 tab orally at bedtime 07/29/2011 Not-Taking Vitamin D (Cholecalciferol) 50 MCG (2000 UT) 1 cap(s) orally once a day 05/16/2015 Active Vitamin B-12 1000 MCG 1 tab(s) orally on ce a day 05/16/2015 Active Problems Problem Type SNOMED Code ICD Code Onset Dates Problem Status W/U Status Risk Notes Problem Renal insufficiency ([id number]) Renal insufficiency (N28.9) Active confirmed Vital Signs Blood pressure systolic 144 mm Hg 05/30/20 24 Blood pressure diastolic 60 mm Hg 024 Heart Rate 60 /min 05/30/2024 Height 64.25 in 05/30/2024 Weight 150.2 lbs 05/30/2024 BMI 25.58 kg/m2 05/30/2024 Encounters Encounter Location Date Provider Diagnosis [facility] [address] [place], [place] [id number] 05/30/2024 Elvie Duke Essential hypertensi on I10 ; Cardiac dysrhythmia, unspecified I49.9 ; Hyperlipidemia, unspecified E78.5 and Renal insufficiency N28.9 Assessments Encounter Date Diagnosis (ICD Code) Assessment Notes Treatment Notes Treatment Clinical Notes Section Notes 05/30/2024 Essential hypertension (ICD-10 - I10) continue current therapy 05/30/2024 Cardiac dysrhythmia, unspecified (ICD-10 - I49.9) 05/30/2024 Hyperlipidemia, unspecified (ICD-10 - E78.5) 05/30/2024 Renal insufficiency (ICD-10 - N28.9) Plan Of Treatment Treatment Notes Assessment Notes Essential hypertension continue current therapy Next Appt Details Follow Up: 4 Months, Reason: Provider Name:Elvie Robb er, 06/19/2025 10:00:00 AM, [address] [facility] [address], [address], [place], [place], [id number], Progress Notes * SIRENA HACKETTDOB: 1 (84 yo F)Acc No.[id number]:05/30/2024 Progress Notes Patient: SIRENA CHRISTIANSEN Provider: Elvie Duke M.D. :1940 A ge:83 Y S ex:Female Date:05/30/2024 Address:[facility] [address] [place] [place] [address] Subjective: * Chief Complaints: * 1 . 4 month check. 2. Needs labs & flu vaccine. * HPI: C ardiology: The patient is here for a check up on Hypertension and Tachycardia. Had ER visit 05/01/24. Subsequently was seen by cardiolog in [facility]. Had Echo which she states was interpreted as stable from prior study. Pt states she did get an EKG. See pt docs. Pt states she had a stress test. Pt states she has been doing OK. 83 year old female presents with c/o Short of Breath. c/o Palpitations. Denies : Chest Pain. D enies : Dizziness. * ROS: D ERMATOLOGY: no R lulu. n o H van. G ASTROENTEROLOGY: no N ausea. n o V omiting. n o D iarrhea.? U ROLOGY: no D ifficulty urinating. n o B lood in urine. * Medical History: Z ostaVax 05/30, Heart Cath, EF=50-60%, 08/28/2015, Osteopenia of Multiple Sites, Supraventricular Tachycardia, nonsustained, Athscl Heart Disease of [place] Coronary Artery w/o ang PCTRS, Essential Hypertension, Pure Hypercholesterolemia, Cardiomyopathy, Hyperlipidemi, Vitamin D Deficiency, Shingrix #1, 12/2018, Covid Vaccines, [place] HD, 10/03/2020 , Adenomyomatosis of the GB, 04/23/22 EF= 45-50%. * Surgical History: A ppendectomy , RT Ovary Cyst Removal , Heart Cath, Stent Placement, [place] [facility], Dr. Souza 09/07/2014, Holter with one fourteen [...] cap(s) orally once a day , Taking Nitrostat 0.3 MG Tablet Sublingual 1 tab(s) sublingually every 5 minutes as needed , Taking Flonase Allergy Relief 50 MCG/ACT Suspension 1 spray(s) in each nostril once a day , Taking Esomeprazole Magnesium 40 MG Capsule Delayed Release 1 cap(s) orally once a day , Taking Metoprolol Succinate ER 25 MG Tablet Extended Release 24 Hour take 1 in evening, 1/2 in morning Two times a day , Taking Losartan Potassium 50 MG Tablet 1 tab(s) orally once daily or as directed , Taking Pravastatin Sodium 20 MG Tablet 1 tab(s) orally once a day (at bedtime) , Taking Zetia 10 MG Tablet 1 tab(s) orally once a day , Taking Doxycycline Hyclate 100 MG Capsule 1 capsule Orally Two times a day , Taking Promethazine-DM 6.25-15 MG/5ML Syrup 5-10 ml Orally every 6 hrs prn , Taking Chlorthalidone 25 MG Tablet 1 tablet in the morning with food Orally , Taking Clopidogrel Bisulfate 75 MG Tablet 1 tablet Orally Once a day , Not- Taking Aspirin 81 MG Tablet Delayed Release 1 tab orally at bedtime , Medication List reviewed and reconciled with the patient * Allergies: P enicillins: rash. Objective: * Vitals: W t:150.2, Temp:97.6, BP:144/60, HR:60, O2 Sat:98% on RA, Nurse:LEXII, Ht: 64.25, BMI:25.58. * Examination: G eneral Examination: General Appearance: N AD. H EENT: P ERRLA, lids normal. O ral cavity: n o lesions, mucosa moist and WNL, no erythema. N corrie: s upple, no lymphadenopathy. C hest: n ormal shape and expansion. H eart: R SR, no ectopics. Lungs: c lear to auscultation. A bdomen: soft and nontender, no organomegaly or masses. N eurologic Exam: I ntact, gait normal. S kin: n ormal, no rash. P eripheral pulses: n ormal . B ack: mild dorsal kyphosis. E xtremities: 3 + leg edema, chronic. Assessment: * Assessment: 1. E ssential hypertension - I10 (Primary) 2 . C ardiac dysrhythmia, unspecified - I49.9 3 . H yperlipidemia, unspecified - E78.5 4 . R enal insufficiency - N28.9 Plan: * Treatment: Value Reference Range B UN 35 H 8-23 - mg/dL * C alcium 9.5 8.6-10.4 - mg/dL * C hloride 105 97-108 - mmol/L * C O2 26 22-32 - mmol/L * C reatinine 1.30 H 0.50-1.00 - mg/dL * G lucose 90 65-99 - mg/dL * P otassium 4.2 3.5-5.3 - mmol/L * S odium 141 135-145 - mmol/L * e GFR by Creatinine 41 L >59 - mL/min/1.73m2 * Adele Moreno 06/02/20 24 12:52:11 PM >See phone encounter Notes: continue current therapy?? * Procedure Codes: 9 4760 PULSE OX * Follow Up: 4 Months * Images: Billing Information: * Visit Code: 18385 Office Visit, Est Pt., Level 4. * Procedure Codes: 59486 PULSE OX. * Electronic signature of Elvie Duke MD on 06/01/2025 at 09:34 AM EDT Sign off status: Pending * Provider: lEvie Duke M.D. Date: Generated for Claudiai ng/Falitg/eTransmitting on: 09:34 AM EDT History and Physical Notes * HPI (History of Present Illness) Category Sub-Category Detail Notes Category Not es Cardiology Short of Breath Chest Pain Palpitations Dizziness Examination Category Sub-Category Detail Notes Category Not es General Examination HEENT: PERRLA, lids normal Heart: RSR, no ectopics Lungs: clear to [...]
--- OUTSIDE RECORDS SUMMARY | 2024-06-02 10:45 | XMS_ITS ---
Author Organization [facility] Address [address] [facility] [address] [facility] [address] [place], [place] [id number] Care Team Providers Care Gastroenterology Physician Name Role Phone Elvie Duke Primary Care Provider [phone] REASON FOR VISIT 1 month F/U Encounters Encounter Location Date Provider Diagnosis [facility] [address] [facility] [address] [place], [place] [phone] 06/02/2024 Elvie Duke Plan Of Treatment Next Appt Details Provider Name:Elvie Robb er, 06/19/2025 10:00:00 AM, [address] [facility], [address], [place], [place], [id number], Progress Notes * SIRENA HACKETTDOB: (84 yo F)Acc No.[id number]:06/02/2024 Progress Notes Patient: SIRENA CHRISTIANSEN Provider: Elvie Duke M.D. :1940 A ge:83 Y S ex:Female Date:06/02/2024 Address:[address], [facility] Subjective: * Chief Complaints: * 1 . 1 month F/U. * Medical History: Objective: * Vitals: Assessment: Plan: * Treatment: * Images: Billing Information: * Visit Code: * Procedure Codes: * Electronic signature of Elvie Duke MD on 06/01/2025 at 09:34 AM EDT Sign off status: Pending * Provider: Elvie Duke M.D. Date: Generated for Pascual gray/Milo/Surendra on: 09:34 AM EDT
--- OUTSIDE RECORDS SUMMARY | 2024-10-10 07:15 | XMS_ITS ---
Author Organization [facility] Address [address] [place], [place] [phone] Care Team Providers Care Film Developing Machine Operator Name Role Phone Elvie Duke Primary Care Provider Allergies Allergen (clinical drug ingredient) Drug/Non Drug [...] 47 Performing Lab: Notes/Report: Test performed by [employer] [place] [facility] , [address], [place] [address] Dane Kerr MD, Computer Discovery Teacher CLIA: [id number] Sodium 143 135-145 mmol/L Potassium 4.3 3.5-5.3 [...] Encounter Location Date Provider Diagnosis [facility] [address] [facility] [address] [place] [id number] 10/10/2024 Elvie Duke Essential hypertensi on I10 [...] 06/19/2025 10:00:00 AM, [address] [facility], [address], [place], [phone], Progress Notes * SIRENA HACKETTDOB: (84 yo F)Acc No.[id number]:10/10/2024 Progress Notes Patient: SIRENA CHRISTIANSEN Provider: Elvie Duke M.D. :1940 A ge:83 Y S ex:Female Date:10/10/2024 Address:[address], [place] [address] Subjective: * Chief Complaints: * 1 . 4 Month Check Up. 2. Needs labs & bone density screening. * HPI: C ardiology: The pt is here for a check up on Hypertension and Hyperlipidemia. Pt states she is doing good and denies any new concerns. Pt is fasting. Pt states she is needing refills sent to [facility] pharmacy. Denies : Chest Pain. D enies [...] Supraventricular Tachycardia, nonsustained, Athscl Heart Disease of [place] Coronary Artery w/o ang PCTRS, Essential Hypertension, Pure Hypercholesterolemia, Cardiomyopathy, Hyperlipidemi, Vitamin D Deficiency, Shingrix #1, 12/2018, Covid Vaccines, [place] HD, 10/03/2020 , Adenomyomatosis of the GB, 04/23/22 EF= 45-50%. * Surgical History: A ppendectomy , RT Ovary Cyst Removal , Heart Cath, Stent Placement, [facility], Dr. Sozua 09/07/2014, Holter with one fourteen beat run [...] 10/10/2024 1:51: 07 PM > faxed to [facility] Scheduling Adele Moreno 02/24/2025 12:21:58 PM EDT > See phone encounter 4.?Cardiac dysrhythmia, unspecified? Refill Clopidogrel Bisulfate Tablet, 75 MG, 1 tablet, Orally, Once a day, 30 days, 30 Tablet, Refills 4.??5.?Others? Refill Esomeprazole Magnesium Capsule Delayed Release, 40 MG, 1 cap(s), orally, once a day, 30, Refills 4.?? * Procedure Codes: G 2211 Complex e/[place], [address] CBC WITH AUTO DIFF, 80144 VENIPUNCT, ROUTINE*, 3077F SYST BP = 140 MM HG6 IT, 3078F DIAST BP < 80 MM HG * Follow Up: 4 Months * Images: Billing Information: * Visit Code: 23183 Office Visit, Est Pt., Level 4. * Procedure Codes: G2211 Complex e/[place]. [address] CBC WITH AUTO DIFF. 44604 VENIPUNCT, ROUTINE*. 3077F SYST BP = 140 MM HG6 IT. 3078F DIAST BP < 80 MM HG. * Electronic signature of Elvie Duke MD on 06/01/2025 at 09:34 AM EDT Sign off status: Pending * Provider: Elvie Duke M.D. Date: 0 10/10/2024 Generated for Pascual gray/Milo/Surendra on: 1 09:34 AM EDT History and Physical Notes [...]
--- OUTSIDE RECORDS SUMMARY | 2025-02-10 07:30 | XMS_ITS ---
Author Organization [facility] Address [address] [place], [place] [address] Care Team Providers Care Landscape Architect And Planner Name Role Phone Elvie Duke Primary Care Provider [phone] Allergies Allergen (clinical drug ingredient) Drug/Non Drug Allergy documented on EMR Reaction Allergy Type Onset Date Status Substance with penicillin structure and antibacterial mechanism of action (substance) Penicillins rash Drug Allergy Active Results Component Value Reference Range Notes P-Basic Metabolic Panel (BMP ) Reviewed date:02/24/2025 12:22:07 PM Interpretation:bun 36, Cr 1.31, gfr 40 Performing Lab: Notes/Report: Test performed by [facility] [address] [place] [address] [place] [address] Dane Kerr MD, Curriculum Designer CLIA: [id number] Sodium 141 135-145 mmol/L Potassium 4.2 3.5-5.3 mmol/L Chloride 105 97-108 mmol/L CO2 25 20-32 mmol/L Glucose 88 65-99 mg/dL BUN 36 8-23 mg/dL Creatinine 1.31 0.50-1.00 mg/dL Calcium 9.5 8.6-10.4 mg/dL eGFR by Creatinine 40 >59 mL/min/1.73m2 P-Lipid Panel Reviewed date:02/24/2025 12:22:07 PM Interpretation:Normal Performing Lab: Notes/Report: Test performed by [facility] [address] [place] [address] [place] [address] Dane Kerr MD, Curriculum Designer CLIA: [id number] Cholesterol 114 <200 mg/dL Triglycerides 77 <150 mg/dL HDL Cholesterol 47 >39 mg/dL Cholesterol / HDL Ratio 2.43 0.00-4.44 Ratio Non-HDL Cholesterol 67 <130 mg/dL LDL Cholesterol (Calculation) 52 <130 mg/dL LDL Cholesterol Levels* Less than 100 mg/dL Optimal 100 to 129 mg/dL Near Optimal/ Above Optimal 130 to 159 mg/dL Borderline High 160 to 189 mg/dL High 190 mg/dL and above Very High * Categories as recommended by the 2004 ATPIII guidelines LDL/HDL Ratio 1.1 <3.3 Ratio LDL Cholesterol Patient History Test Date: 01/25/2024 LDL Results: 53 Units: mg/dL % Change: - Test Date: 02/10/2025 LDL Results: 52 Units: mg/dL % Change: -1% REASON FOR VISIT 4 month f/u, Needs labs Medications Medication SIG (Take, Route, Frequency, Duration) Notes Start Date End Date Status Losartan Potassium 50 MG 1 tablet Orally Once a day; Duration: 30 day(s) Active Risedronate Sodium 35 MG 1 Orally once a week 10/01 Active Flonase Allergy Relief 50 MCG/ACT 1 spray(s) in each nostril once a day; Duration: 30 day(s) 04/30/2022 Active Nitrostat 0.3 MG 1 tab(s) sublinguall y every 5 minutes as needed Active Vitamin D (Cholecalciferol) 50 MCG (2000 UT) 1 cap(s) orally once a day 05/16/2015 Active Esomeprazole Magnesium 40 MG 1 cap(s) orally once a day 09/24/2020 Active Zetia 10 MG 1 tab(s) orally once a day; Duration: 30 days Active Pravastatin Sodium 20 MG 1 tab(s) orally once a day (at bedtime); Duration: 30 days Active Clopidogrel Bisulfate 75 MG 1 tablet Ora lly Once a day; Duration: 30 days Active Vitamin B-12 1000 MCG 1 tab(s) orally on a day 05/16/2015 Active Chlorthalidone 25 MG 1 tablet in the mor emilee with food Orally; Duration: 30 days Active Metoprolol Succinate ER 25 MG 1/2 in AM, 1 in PM twice a day Active Vital Signs Blood pressure systolic 120 mm Hg 02/11/20 25 Blood pressure diastolic 60 mm Hg 025 Heart Rate 65 /min 02/10/2025 Height 64.25 in 02/10/2025 Weight 148.6 lbs 02/10/2025 BMI 25.31 kg/m2 02/10/2025 Encounters Encounter Location Date [facility] [address], [place] [id number] 02/10/2025 Elvie Duke Essential hypertensi on I10 ; 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 ; Renal insufficiency N28.9 ; Cardiomyopathy I42.9 ; Supraventricular tachycardia, nonsustained I47.9 ; Hyperlipidemia, unspecified E78.5 and BMI 25.0-25.9,adult Z68.25 Assessments Encounter Date Diagnosis (ICD Code) Assessment Notes Treatment Notes Treatment Clinical Notes Section Notes 02/10/2025 Essential hypertension (ICD-10 - I10) b 02/10/2025 Athscl heart disease of [place] coronary artery w/o ang pctrs (ICD-10 - I25.10) b 02/10/2025 Renal insufficiency (ICD-10 - N28.9) b 02/10/2025 Cardiomyopathy (ICD-10 - I42.9) b 02/10/2025 Supraventricular tachycardia, nonsustained (ICD-10 - I47.9) b 02/10/2025 Hyperlipidemia, unspecified (ICD-10 - E78.5) b 02/10/2025 BMI 25.0-25.9,adult (ICD-10 - Z68.25) b Plan Of Treatment Medication Medication Name Sig Start Date Stop Date Notes Esomeprazole Magnesium 40 MG 1 cap(s) orally once a day Zetia 10 MG 1 tab(s) orally once a day; Duration: 30 days Pravastatin Sodium 20 MG 1 tab(s) orally once a day (at bedtime); Duration: 30 days Clopidogrel Bisulfate 75 MG 1 tablet Ora lly Once a day; Duration: 30 days Chlorthalidone 25 MG 1 tablet in the mor emilee with food Orally; Duration: 30 days Metoprolol Succinate ER 25 MG 1/2 in AM, 1 in PM twice a day Next Appt Details Follow Up: 4 Months, Reason: Provider Name:Elvie Robb er, 06/19/2025 10:00:00 AM, [address] [facility] [address], [address] [place] [address], [phone], Progress Notes * LEW, LELYNDONDOB: (84 yo F)Acc No.[id number]:02/10/2025 Progress Notes Patient: SIRENA CHRISTIANSEN Provider: Elvie Duke M.D. :1940 A ge:84 Y S ex:Female Date:02/10/2025 [facility] Subjective: * Chief Complaints: * 1 . 4 month f/u. 2. Needs labs. * HPI: H PI: Patient is here today for P t here for a f/u. Pt is fasting. Pt states she [facility]. P t has no other concerns today. * ROS: D ERMATOLOGY: no R lulu. n o H van. G ASTROENTEROLOGY: no N ausea. n o V omiting. n o D iarrhea.? U ROLOGY: no D ifficulty urinating. n o B lood in urine. * Medical History: Z ostaVax 05/30, Heart Cath, EF=50-60%, 08/28/2015, Osteopenia of Multiple Sites, Supraventricular Tachycardia, nonsustained, Athscl Heart Disease of [place] Coronary Artery w/o ang PCTRS, Essential Hypertension, Pure Hypercholesterolemia, Cardiomyopathy, Hyperlipidemi, Vitamin D Deficiency, Shingrix #1, 12/2018, Covid Vaccines, [facility], 10/03/2020 , Adenomyomatosis of the GB, 04/23/22 EF= 45-50%. * Surgical History: A ppendectomy , RT Ovary Cyst Removal , Heart Cath, Stent Placement, [facility], Dr. Souza 09/07/2014, Holter with one fourteen [...] each nostril once a day , Taking Metoprolol Succinate ER 25 MG Tablet Extended Release 24 Hour TAKE 1/2 TABLET BY MOUTH IN THE MORNING AND 1 TABLET IN THE EVENING. , Taking Risedronate Sodium 35 MG Tablet 1 Orally once a week , Taking Esomeprazole Magnesium 40 MG Capsule Delayed Release 1 cap(s) orally once a day , Taking Losartan Potassium 50 MG Tablet 1 tablet Orally Once a day , Taking Chlorthalidone 25 MG Tablet 1 tablet in the morning with food Orally , Taking Clopidogrel Bisulfate 75 MG Tablet 1 tablet Orally Once a day , Taking Pravastatin Sodium 20 MG Tablet 1 tab(s) orally once a day (at bedtime) , Taking Zetia 10 MG Tablet 1 tab(s) orally once a day , Discontinued Aspirin 81 MG Tablet Delayed Release 1 tab orally at bedtime , Medication List reviewed and reconciled with the patient * Allergies: P enicillins: rash. Objective: * Vitals: W t: 148.6, Temp: 97.5, BP: 120/60, HR: 65, Nurse: pe, Ht: 64.25, BMI:25.31. * Examination: G eneral Examination: General Appearance: [...] kyphosis. E xtremities: 3 + leg edema, chronic, lipoid. Assessment: * Assessment: 1. E ssential hypertension - I10 (Primary) 2 . 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 R enal insufficiency - N28.9 4 . C ardiomyopathy - I42.9 5 . S upraventricular tachycardia, nonsustained - I47.9 6 . H yperlipidemia, unspecified - E78.5 7 .?BMI 25.0-25.9,adult - Z68.25 b Plan: * Treatment: 2. A thscl heart disease of [place] coronary artery w/o ang pctrs Refill Clopidogrel Bisulfate Tablet, 75 MG, 1 tablet, Orally, Once a day, 30 days, 30 Tablet, Refills 5; R efill Pravastatin Sodium Tablet, 20 MG, 1 tab(s), orally, once a day (at bedtime), 30 days, 30, Refills 5; R efill Zetia Tablet, 10 MG, 1 tab(s), orally, once a day, 30 days, 30 Tablet, Refills 5. L AB: P-Basic Metabolic Panel (BMP) (Collection Date & Time - 02/10/2025 12:06 PM) b un 36, Cr 1.31, gfr 40 Value Reference Range B UN 36 H 8-23 - mg/dL * C alcium 9.5 8.6-10.4 - mg/dL * C hloride 105 97-108 - mmol/L * C O2 25 20-32 - mmol/L * C reatinine 1.31 H 0.50-1.00 - mg/dL * G lucose 88 65-99 - mg/dL * P otassium 4.2 3.5-5.3 - mmol/L * S odium 141 135-145 - mmol/L * e GFR by Creatinine 40 L >59 - mL/min/1.73m2 * Adele Moreno Ann 02/25/20 12:21:58 PM EDT > See phone encounter ?LAB: P-Lipid Panel (Collection Date & Time - 02/10/2025 12:06 PM)?Normal* Value Reference Range C holesterol / HDL Ratio 2.43 0.00-4.44 - Ratio * C holesterol 114 <200 - mg/dL * H DL Cholesterol 47 >39 - mg/dL * L DL Cholesterol (Calculation) 52 <130 - mg/d L * L DL/HDL Ratio 1.1 <3.3 - Ratio * N on-HDL Cholesterol 67 <130 - mg/dL * T riglycerides 77 <150 - mg/dL * Adele Moreno Ann 02/25/20 12:21:58 PM EDT > See phone encounter 3.?Others? Refill Esomeprazole Magnesium Capsule Delayed Release, 40 MG, 1 cap(s), orally, once a day, 30, Refills 5.?? * Procedure Codes: G 2211 Complex e/m visit add on, 1036F TOBACCO NON-USER, G8420 BMI<30 AND >=22 CALC & DOCU, G8950 PREHTN/HTN BP DOC INDCD F/U DOC, G8752 MOST RECENT SYSTOLIC BP < 140MM HG, G8754 MOST RECENT DIASTOLIC BP < 90MM HG * Follow Up: 4 Months * Images: Billing Information: * Visit Code: 25700 Office Visit, Est Pt., Level 4. * Procedure Codes: G2211 Complex e/m visit add on. 1036F TOBACCO NON-USER. G8420 BMI<30 AND >=22 CALC & DOCU. G8950 PREHTN/HTN BP DOC INDCD F/U DOC. G8752 MOST RECENT SYSTOLIC BP < 140MM HG. G8754 MOST RECENT DIASTOLIC BP < 90MM HG. * Electronic signature of Elvie Duke MD on 06/01/2025 at 09:35 AM EDT Sign off status: Pending * Provider: Elvie Duke M.D. Date: 0 02/10/2025 Generated for Pascual gray/Milo/eTransmitting on: 1 09:35 AM EDT History and Physical Notes * HPI (History of Present Illness) Category Sub-Category Detail Notes Category Not es HPI Patient is here today for Pt her e for a f/u. Pt is fasting. Pt states she does need refills [facility] [place] [facility]. Pt has no other concerns today Examination Category Sub-Category Detail Notes Category Not es General Examination HEENT: PERRLA, lids normal Heart: RSR, no ectopics Lungs: clear to auscultatio n Abdomen: soft and nontender, no organomegaly or masses Extremities: 3+ leg edema, chroni c, lipoid General Appearance: NAD Skin: normal, no rash Neurologic Exam: Intact, gait normal Neck: supple, no lymphaden opathy Oral cavity: no lesions, mucosa m oist and WNL, no erythema Peripheral pulses: normal Back: mild dorsal kyphosis Chest: normal shape and exp ansion
--- OUTSIDE RECORDS SUMMARY | 2025-04-24 09:15 | XMS_ITS ---
Author Organization [facility] Address [address] [facility] [address] [place], [place] [id number] Care Team Providers Care Matrix Repairer Name Role Phone Elvie Duke Primary Care Provider Aarti Shook Unavailable [phone] Allergies Allergen (clinical drug ingredient) Drug/Non Drug Allergy documented on EMR Reaction Allergy Type Onset Date Status Substance with penicillin structure and antibacterial mechanism of action (substance) Penicillins rash Drug Allergy Active REASON FOR VISIT B/P running high Medications Medication SIG (Take, Route, Frequency, Duration) Notes Start Date End Date Status Clopidogrel Bisulfate 75 MG 1 tablet Ora lly Once a day; Duration: 30 days Active Pravastatin Sodium 20 MG 1 tab(s) orally once a day (at bedtime); Duration: 30 days Active Chlorthalidone 25 MG 1 tablet in the mor emilee with food Orally Active Zetia 10 MG 1 tab(s) orally once a day; Duration: 30 days Active Esomeprazole Magnesium 40 MG 1 cap(s) orally once a day 09/24/2020 Active Losartan Potassium 50 MG 1 tablet Orally Once a day Active Metoprolol Succinate ER 25 MG 1 in AM, 1 in PM twice a day Active Risedronate Sodium 35 MG 1 Orally once a week 10/01 Active Nitrostat 0.3 MG 1 tab(s) sublinguall y every 5 minutes as needed Active Flonase Allergy Relief 50 MCG/ACT 1 spray(s) in each nostril once a day; Duration: 30 day(s) 04/30/2022 Active Vitamin B-12 1000 MCG 1 tab(s) orally on 05/16/2015 Active Vitamin D (Cholecalciferol) 50 MCG (1999 UT) 1 cap(s) orally once a day 05/16/2015 Active Vital Signs Blood pressure systolic 148 mm Hg 04/24/20 25 Blood pressure diastolic 70 mm Hg 025 Heart Rate 60 /min 04/24/2025 Height 64.25 in 04/24/2025 Weight 149.6 lbs 04/24/2025 BMI 25.48 kg/m2 04/24/2025 Encounters Encounter Location Date Provider Diagnosis [facility] [facility] [address] [facility] [address] [place], [place] [id number] 04/24/2025 Aarti Shook Essential hypertensi on I10 and BMI 25.0-25.9,adult Z68.25 Assessments Encounter Date Diagnosis (ICD Code) Assessment Notes Treatment Notes Treatment Clinical Notes Section Notes 04/24/2025 Essential hypertension (ICD-10 - I10) will increase metoprolol to 25 mg bid; she will continue to monitor BP at home 04/24/2025 BMI 25.0-25.9,adult (ICD-10 - Z68.25) Plan Of Treatment Medication Medication Name Sig Start Date Stop Date Notes Chlorthalidone 25 MG 1 tablet in the mor emilee with food Orally Losartan Potassium 50 MG 1 tablet Orally Once a day Metoprolol Succinate ER 25 MG 1 in AM, 1 in PM twice a day Treatment Notes Assessment Notes Essential hypertension will increase met oprolol to 25 mg bid; she will continue to monitor BP at home Next Appt Details Follow Up: prn and keep 06/04 025 appt, Reason: Provider Name:Elvie Robb er, 06/19/2025 10:00:00 AM, [address] [facility] [address] [facility], [address], [place], [place], [phone], Progress Notes * LEW SIRENADOB: 1 (84 yo F)Acc No.[id number]:04/24/2025 Progress Notes Patient: SIRENA CHRISTIANSEN Provider: RICKEY Pyle :1940 A ge:84 Y S ex:Female Date:04/24/2025 [facility] Pcp:Elvie Duke Subjective: * Chief Complaints: * 1 . B/P running high. * HPI: C ardiology: she dis take anothe 1/2 of metoprolol this AM for total of 25mg. 84 year old female presents with c/o Blood Pressure Elevated?Pt states her BP been high for few days. Pt states the highest 200/55. Pt states this started Thursday . Denies : Chest Pain. D enies : Short of Breath. D enies : Dizziness. D enies : Palpitations. D enies : Leg Edema. H PI: states she did have the flu shot last week and head has felt full. * ROS: R ESPIRATORY: no S hortness of breath. n o C hest pain. n o?Chest congestion. n o C ough. G ASTROENTEROLOGY: no N ausea. n o V omiting. n o D iarrhea.? U ROLOGY: no D ifficulty urinating. * Medical History: Z ostaVax 05/30, Heart Cath, EF=50-60%, 08/28/2015, Osteopenia of Multiple Sites, Supraventricular Tachycardia, nonsustained, Athscl Heart Disease of [place] Coronary Artery w/o ang PCTRS, Essential Hypertension, Pure Hypercholesterolemia, Cardiomyopathy, Hyperlipidemi, Vitamin D Deficiency, Shingrix #1, 12/2018, Covid Vaccines, [place] [facility], 10/03/2020 , Adenomyomatosis of the GB, [...] each nostril once a day , Taking Risedronate Sodium 35 MG Tablet 1 Orally once a week , Taking Losartan Potassium 50 MG Tablet 1 tablet Orally Once a day , Taking Metoprolol Succinate ER 25 MG Tablet Extended Release 24 Hour 1/2 in AM, 1 in PM twice a day , Taking Chlorthalidone 25 MG Tablet 1 tablet in the morning with food Orally , Taking Clopidogrel Bisulfate 75 MG Tablet 1 tablet Orally Once a day , Taking Pravastatin Sodium 20 MG Tablet 1 tab(s) orally once a day (at bedtime) , Taking Zetia 10 MG Tablet 1 tab(s) orally once a day , Taking Esomeprazole Magnesium 40 MG Capsule Delayed Release 1 cap(s) orally once a day , Medication List reviewed and reconciled with the patient * Allergies: P enicillins: rash. Objective: * Vitals: W t: 149.6, Temp: 97.8, BP: 148/70, HR: 60, O2 Sat: 97% on RA, Nurse: jeff, Ht: 64.25, BMI:25.48. * Examination: G eneral Examination: General Appearance: N AD, appears healthy, alert, well nourished and hydrated. H EENT: s clera and conjunctiva clear, PERRLA, TM's normal, translucent.?Oral cavity: m ucosa moist and WNL, no erythema. N corrie: s upple, no lymphadenopathy. H eart: R RR. L ungs: C TAB A&P. N eurologic Exam: a lert and oriented. E xtremities: n o leg edema. Assessment: * Assessment: 1. E ssential hypertension - I10 (Primary) 2 . B DC 25.0-25.9,adult - Z68.25 Plan: * Treatment: * Procedure Codes: G 2211 Complex e/m visit add on, 1036F TOBACCO NON-USER, G8950 PREHTN/HTN BP DOC INDCD F/U DOC, G8753 MOST RECENT SYSTOLIC BP >= 140MM HG, G8754 MOST RECENT DIASTOLIC BP < 90MM HG, G8420 BMI<30 AND >=22 CALC & DOCU * Follow Up: p rn and keep 06/2025 appt * Images: Billing Information: * Visit Code: 46609 Office Visit, Est Pt., Level 3. * Procedure Codes: G2211 Complex e/m visit add on. 1036F TOBACCO NON-USER. G8950 PREHTN/HTN BP DOC INDCD F/U DOC. G8753 MOST RECENT SYSTOLIC BP >= 140MM HG. G8754 MOST RECENT DIASTOLIC BP < 90MM HG. G8420 BMI<30 AND >=22 CALC & DOCU. * Electronic signature of Janice Shook APRN on 06/01/2025 at 09:33 AM EDT Sign off status: Pending * Provider: RICKEY Pyle Date: 0 04/24/2025 Generated for Pascual gray/Milo/Surendra on: 1 09:33 AM EDT History and Physical Notes * HPI (History of Present Illness) Category Sub-Category Detail Notes Category Not es Cardiology Short of Breath Chest Pain Palpitations Dizziness Leg Edema Blood Pressure Elevated Pt states her BP been high for few days. Pt states the highest 200/55. Pt states this started Thursday Examination Category Sub-Category Detail Notes Category Not es General Examination HEENT: sclera and c onjunctiva clear, PERRLA, TM's normal, translucent Heart: RRR Lungs: CTAB A&P Extremities: no leg edema General Appearance: NAD, appears healthy , alert, well nourished and hydrated Neurologic Exam: alert and oriented Neck: supple, no lymphaden opathy Oral cavity: mucosa moist and WNL , no erythema
--- OUTSIDE RECORDS SUMMARY | 2025-05-11 06:15 | XMS_ITS ---
Author Organization [facility] Address [address] [place], [place] [id number] Care Team Providers Care Lining Baster Name Role Phone Elvie Duke Primary Care Provider [phone] [place], David Unavailable [phone] Allergies Allergen (clinical drug ingredient) Drug/Non Drug Allergy documented on EMR Reaction Allergy Type Onset Date Status Substance with penicillin structure and antibacterial mechanism of action (substance) Penicillins rash Drug Allergy Active Results Component Value Reference Range Notes CBC Venipuncture (in house) Reviewed date:05/12/2025 08:40:07 AM Interpretation:Normal Performing Lab: Notes/Report: Normal wbc 6.9 3.5 - 10 lymph 17.4 15 - 50 mid 5.0 2 - 15 gran 77.6 35 - 80 rbc 4.00 3.5 - 5.5 hgb 12.7 11.5 - 16.5 hct 38.1 35 - 55 mcv 95.1 75 - 100 mch 31.7 25 - 35 mchc 33.3 31 - 38 platlet 317 100 - 400 P-Amylase Reviewed date:05/12/2025 08:40:06 AM Interpretation:181 Performing Lab: Notes/Report: Test performed by [facility], [facility] [facility] , [address], [place] [address] Dane Kerr MD, Awning Maker CLIA: [id number] Amylase 181 28-100 U/L P-BNP (Brain Natriuretic Pep tide) Reviewed date:05/16/2025 09:55:05 AM Interpretation: Performing Lab: Notes/Report: P-Comprehensive Metabolic Pa yuri (CMP) Reviewed date:05/12/2025 08:40:06 AM Interpretation:gluc 104, bun 36, Cr 1.37, gfr 38m alk phos 572, alt 187, ast 147, bili 1.5 Performing Lab: Notes/Report: Test performed by [facility] [address] [place] [address] , [address], [place] [address] Dane Kerr MD, Awning Maker CLIA: [id number] Sodium 139 135-145 mmol/L Potassium 4.6 3.5-5.3 mmol/L Chloride 103 97-108 mmol/L CO2 27 20-32 mmol/L Glucose 104 65-99 mg/dL BUN 36 8-23 mg/dL Creatinine 1.37 0.50-1.00 mg/dL Calcium 9.8 8.6-10.4 mg/dL eGFR by Creatinine 38 >59 mL/min/1.73m2 Protein 6.4 6.0-8.3 g/dL Albumin 3.9 3.5-5.3 g/dL Alkaline Phosphatase 572 35-121 IU/L ALT (SGPT) 187 <5-47 IU/L AST (SGOT) 147 <5-40 IU/L Bilirubin, Total 1.5 <0.2-1.2 mg/dL A/G Ratio 1.6 1.1-2.5 P-Lipase Reviewed date:05/12/2025 08:40:06 AM Interpretation:399 Performing Lab: Notes/Report: Test performed by [facility] [address] , [address], [place] [address] Dane Kerr MD, Awning Maker CLIA: [id number] Lipase 399.0 13.0-60.0 U/L P-Magnesium Reviewed date:05/12/2025 08:40:06 AM Interpretation:Normal Performing Lab: Notes/Report: Test performed by [facility] [address] , [address], [place] [id number] Dane Kerr MD, Awning Maker CLIA: [id number] Magnesium 2.3 1.6-2.4 mg/dL P-Phosphorus Reviewed date:05/12/2025 08:40:06 AM Interpretation:Normal Performing Lab: Notes/Report: Test performed by [facility] , [address], [place] [address] Dane Kerr MD, Awning Maker CLIA: [id number] Phosphorus 3.9 2.5-4.5 mg/dL P-Parathyroid Hormone (PTH) Intact Reviewed date:05/12/2025 08:40:07 AM Interpretation:Normal Performing Lab: Notes/Report: Test performed by [facility] [address] , [address], [place] [address] Dane Kerr MD, Awning Maker CLIA: [id number] Parathyroid Hormone (PTH) Intact 35.8 15.0-65. 0 pg/mL P-TSH reflex to FT4 Reviewed date:05/12/2025 08:40:07 AM Interpretation:Normal Performing Lab: Notes/Report: Test performed by [facility] [address] , [address], [place] [address] Dane Kerr MD, Awning Maker CLIA: [id number] TSH reflex to FT4 2.40 0.43-5.25 mU/L P-Microalbumin/Creatinine, R andom Urine Sample Reviewed date:05/12/2025 08:40:07 AM Interpretation:Normal Performing Lab: Notes/Report: Test performed by [facility] [address] , [address], [place] [address] Dane Kerr MD, Awning Maker CLIA: [id number] Albumin/Creatinine Ratio, Urine 21 0-30 ug/m g Microalbumin, Urine, Random 1.9 Creatinine, Urine 90.7 proBrain Natriuretic Peptide Reviewed date:05/12/2025 08:40:07 AM Interpretation:837 Performing Lab: Notes/Report: Test performed by [facility] [address] [place] [address] , [address], [place] [address] Dane Kerr MD, Awning Maker CLIA: [id number] proBrain Natriuretic Peptide 837 <300 pg/mL Please note the updated reference range values which are stratified by age. Positive >1800 pg/mL Indeterminate 300-1800 pg/mL Negative<300 pg/mL Echocardiogram Reviewed date:05/25/2025 08:49:08 AM Interpretation:Abnormal Performing Lab: Notes/Report: Abnormal Echocardiogram Reviewed date:05/25/2025 08:49:08 AM Interpretation:Abnormal Performing Lab: Notes/Report: Abnormal REASON FOR VISIT BP high Medications Medication SIG (Take, Route, Frequency, Duration) Notes Start Date End Date Status Vitamin D (Cholecalciferol) 50 MCG (1999 UT) 1 cap(s) orally once a day 05/16/2015 Active Vitamin B-12 1000 MCG 1 tab(s) orally on a day 05/16/2015 Active Chlorthalidone 25 MG 1 tablet in the mor emilee with food Orally Active Metoprolol Succinate ER 25 MG 1 in AM, 1 in PM twice a day Active Losartan Potassium 50 MG 1 tablet Orally Once a day Active Risedronate Sodium 35 MG 1 Orally once a week 10/01 Active Esomeprazole Magnesium 40 MG 1 cap(s) orally once a day 09/24/2020 Active Zetia 10 MG 1 tab(s) orally once a day; Duration: 30 days Active Pravastatin Sodium 20 MG 1 tab(s) orally once a day (at bedtime); Duration: 30 days Active Clopidogrel Bisulfate 75 MG 1 tablet Ora lly Once a day; Duration: 30 days Active Nitrostat 0.3 MG 1 tab(s) sublinguall y every 5 minutes as needed Active Flonase Allergy Relief 50 MCG/ACT 1 spray(s) in each nostril once a day; Duration: 30 day(s) 04/30/2022 Active Problems Problem Type SNOMED Code ICD Code Onset Dates Problem Status W/U Status Risk Notes Problem Chronic kidney disease stage 3B (disorder) (496495715) Stage 3b chronic kidney disease (CKD) (N18.32) Active confirmed Vital Signs Blood pressure systolic 122 mm Hg 05/11/20 25 Blood pressure diastolic 52 mm Hg 025 Heart Rate 66 /min 05/11/2025 Height 64.25 in 05/11/2025 Weight 147.2 lbs 05/11/2025 BMI 25.07 kg/m2 05/11/2025 Encounters Encounter Location Date Provider Diagnosis [facility] [address] [facility] [address] [place], [place] [id number] 05/11/2025 David [place] Essential hypertensi on I10 ; SOB (shortness of breath) R06.02 ; Stage 3b chronic kidney disease (CKD) N18.32 ; Other fatigue R53.83 ; Cardiomyopathy I42.9 ; Epigastric abdominal pain R10.13 and BMI 25.0-25.9,adult Z68.25 Assessments Encounter Date Diagnosis (ICD Code) Assessment Notes Treatment Notes Treatment Clinical Notes Section Notes 05/11/2025 Essential hypertension (ICD-10 - I10) 05/11/2025 SOB (shortness of breath) (ICD-10 - R06.02) 05/11/2025 Stage 3b chronic kidney disease (CKD) (ICD-10 - N18.32) 05/11/2025 Other fatigue (ICD-10 - R53.83) 05/11/2025 Cardiomyopathy (ICD-10 - I42.9) 05/11/2025 Epigastric abdominal pain (ICD-10 - R10.13) 05/11/2025 BMI 25.0-25.9,adult (ICD-10 - Z68.25) Plan Of Treatment Next Appt Details Follow Up: via phone to repo rt test results, Reason: Provider Name:Elvie Robb er, 06/19/2025 10:00:00 AM, [address] [facility] [facility] [address] [facility], [address], [place], [place], [id number], Progress Notes * SIRENA HACKETTDOB: (84 yo F)Acc No.[id number]:05/11/2025 Progress Notes Patient: SIRENA CHRISTIANSEN Provider: Sarah Jackman M.D. :1940 A ge:84 Y S ex:Female Date:05/11/2025 [facility] Pcp:Elvie Duke Subjective: * Chief Complaints: * 1 . BP high. * HPI: C ardiology: 84 year old female presents with c/o Blood Pressure Elevated?Pt complains of elevated bp at home fpr about one month. Pt was seen 04/14 and Metoprolol was increased to 25mg BID.Pt states blood pressure is normal in the morning but really high at night . Pt states when she check bp last night it was 184/54. Pt states elevated bp has been occompanied by shortness of breath without exertion and chest pain at times . * Medical History: Z ostaVax 05/30, Heart Cath, EF=50-60%, 08/28/2015, Osteopenia of Multiple Sites, Supraventricular Tachycardia, nonsustained, [facility] Heart Disease of [place] Coronary Artery w/o ang PCTRS, Essential Hypertension, Pure Hypercholesterolemia, Cardiomyopathy, Hyperlipidemi, Vitamin D Deficiency, Shingrix #1, 12/2018, Covid Vaccines, [facility], 10/03/2020 , Adenomyomatosis of the GB, 04/23/22 EF= 45-50%. * Surgical History: A ppendectomy , RT Ovary Cyst Removal , Heart Cath, Stent Placement, [place], Dr. Souza 09/07/2014, Holter with one fourteen beat run of SVT 05/16/2015, Colonoscopy, Dr. Daniels 02/2020. * Hospitalization/Major Diagno stic Procedure: D enies Past Hospitalization. * Family History: F ather: . M other: , coronary artery disease. M aternal Grand Father: diagnosed with Cancer. 1 son(s) , 2 daughter(s) . . Brother and sister with CAD. * Social History: C URRENT TOBACCO USE: No S moking Status: Patient does NOT smoke. [...] 1 Orally once a week , Taking Clopidogrel Bisulfate 75 MG Tablet [...] 25 MG Tablet Extended Release 24 Hour 1 in AM, 1 in PM twice a day , Taking Chlorthalidone 25 MG Tablet 1 tablet in the morning with food Orally , Medication List reviewed and reconciled with the patient * Allergies: P enicillins: rash. Objective: * Vitals: W t: 147.2, Temp: 98.1, BP: 122/52, HR: 66, Nurse: elizabeth, Ht: 64.25, BMI:25.07. * Examination: G eneral Examination: General Appearance: N AD. H eart: R SR. L ungs:?clear to auscultation. Assessment: * Assessment: 1. E ssential hypertension - I10 (Primary) 2 . S OB (shortness of breath) - R06.02 3 . S tage 3b chronic kidney disease (CKD) - N18.32 4 .?Other fatigue - R53.83 5 . C ardiomyopathy - I42.9 6 . E pigastric abdominal pain - R10.13 7 . B WI 25.0-25.9,adult - Z68.25 Plan: * Treatment: Value Reference Range A /G Ratio 1.6 1.1-2.5 - * A lbumin 3.9 3.5-5.3 - g/dL * A lkaline Phosphatase 572 H 35-121 - IU/L * A LT (SGPT) 187 H <5-47 - IU/L * A ST (SGOT) 147 H <5-40 - IU/L * B ilirubin, Total 1.5 H <0.2-1.2 - mg/dL * B UN 36 H 8-23 - mg/dL * C alcium 9.8 8.6-10.4 - mg/dL * C hloride 103 97-108 - mmol/L * C O2 27 20-32 - mmol/L * C reatinine 1.37 H 0.50-1.00 - mg/dL * G lucose 104 H 65-99 - mg/dL * P otassium 4.6 3.5-5.3 - mmol/L * S odium 139 135-145 - mmol/L * P rotein 6.4 6.0-8.3 - g/dL * e GFR by Creatinine 38 L >59 - mL/min/1.73m2 * Lina Garcia 05/12/2025 08: 39:57 AM EDT > See phone encounter ?LAB: P-Microalbumin/Creatinine, Random Urine Sample (Collection Date & Time - 05/11/2025 09:55 AM)?Normal* Value Reference Range A lbumin/Creatinine Ratio, Urine 21 0-30 - ug /mg * C reatinine, Urine 90.7 - mg/dL * M icroalbumin, Urine, Random 1.9 - mg/dL * Lina Garcia 05/12/2025 08: 39:57 AM EDT > See phone encounter 2.?SOB (shortness of breath)?LAB: P-Comprehensive Metabolic Panel (CMP) (Collection Date & Time - 05/11/2025 09:55 AM)?gluc 104, bun 36, Cr 1.37, gfr 38m alk phos 572, alt 187, ast 147, bili 1.5* Value Reference Range A /G Ratio 1.6 1.1-2.5 - * A lbumin 3.9 3.5-5.3 - g/dL * A lkaline Phosphatase 572 H 35-121 - IU/L * A LT (SGPT) 187 H <5-47 - IU/L * A ST (SGOT) 147 H <5-40 - IU/L * B ilirubin, Total 1.5 H <0.2-1.2 - mg/dL * B UN 36 H 8-23 - mg/dL * C alcium 9.8 8.6-10.4 - mg/dL * C hloride 103 97-108 - mmol/L * C O2 27 20-32 - mmol/L * C reatinine 1.37 H 0.50-1.00 - mg/dL * G lucose 104 H 65-99 - mg/dL * P otassium 4.6 3.5-5.3 - mmol/L * S odium 139 135-145 - mmol/L * P rotein 6.4 6.0-8.3 - g/dL * e GFR by Creatinine 38 L >59 - mL/min/1.73m2 * Lina Garcia 05/12/2025 08: 39:57 AM EDT > See phone encounter ?LAB: CBC Venipuncture (in house) (Collection Date & Time - 05/11/2025)? Normal* Value Reference Range w bc 6.9 3.5 - 10 * l ymph 17.4 15 - 50 * m id 5.0 2 - 15 * g ran 77.6 35 - 80 * r bc 4.00 3.5 - 5.5 * h gb 12.7 11.5 - 16.5 * h ct 38.1 35 - 55 * m cv 95.1 75 - 100 * m ch 31.7 25 - 35 * m chc 33.3 31 - 38 * p latlet 317 100 - 400 * Sushma Conway 05/11/2025 11:2 8:08 AM EDT > Lina Garcia 05/12/2025 08:39:57 AM EDT > See phone encounter ?LAB: P-BNP (Brain Natriuretic Peptide) (Collection Date & Time - 05/16/2025)* see duplicate order ?Imaging: Echocardiogram (Performed Date - 05/17/2025)?Abnormal* Freya Brown 05/12/2025 11: 04:14 AM EDT > fax[facility] SchedulingLina Garcia 05/25/2025 08:49:01 AM EDT > See phone encounter 3.?Stage 3b chronic kidney disease (CKD)?LAB: P-Comprehensive Metabolic Panel (CMP) (Collection Date & Time - 05/11/2025 09:55 AM)?gluc 104, bun 36, Cr 1.37, gfr 38m alk phos 572, alt 187, ast 147, bili 1.5* Value Reference Range A /G Ratio 1.6 1.1-2.5 - * A lbumin 3.9 3.5-5.3 - g/dL * A lkaline Phosphatase 572 H 35-121 - IU/L * A LT (SGPT) 187 H <5-47 - IU/L * A ST (SGOT) 147 H <5-40 - IU/L * B ilirubin, Total 1.5 H <0.2-1.2 - mg/dL * B UN 36 H 8-23 - mg/dL * C alcium 9.8 8.6-10.4 - mg/dL * C hloride 103 97-108 - mmol/L * C O2 27 20-32 - mmol/L * C reatinine 1.37 H 0.50-1.00 - mg/dL * G lucose 104 H 65-99 - mg/dL * P otassium 4.6 3.5-5.3 - mmol/L * S odium 139 135-145 - mmol/L * P rotein 6.4 6.0-8.3 - g/dL * e GFR by Creatinine 38 L >59 - mL/min/1.73m2 * Lina Garcia 05/12/2025 08: 39:57 AM EDT > See phone encounter ?LAB: P-Phosphorus (Collection Date & Time - 05/11/2025 09:55 AM)?Normal* Value Reference Range P hosphorus 3.9 2.5-4.5 - mg/dL * Lina Garcia 05/12/2025 08: 39:57 AM EDT > See phone encounter ?LAB: P-Parathyroid Hormone (PTH) Intact (Collection Date & Time - 05/11/2025 09:55 AM)?Normal* Value Reference Range P arathyroid Hormone (PTH) Intact 35.8 15.0-65. 0 - pg/mL * Lina Garcia 05/12/2025 08: 39:57 AM EDT > See phone encounter 4.?Other fatigue?LAB: P-Magnesium (Collection Date & Time - 05/11/2025 09:55 AM)?Normal* Value Reference Range M agnesium 2.3 1.6-2.4 - mg/dL * Lina Garcia 05/12/2025 08: 39:57 AM EDT > See phone encounter ?LAB: P-TSH reflex to FT4 (Collection Date & Time - 05/11/2025 09:55 AM)? Normal* Value Reference Range T SH reflex to FT4 2.40 0.43-5.25 - mU/L * Lina Garcia 05/12/2025 08: 39:57 AM EDT > See phone encounter 5.?Cardiomyopathy?Imaging: Echocardiogram (Performed Date - 05/17/2025)?Abnormal* Freya Brown 05/12/2025 11: 04:14 AM EDT > faxed to [facility] SchedulingIsaacLina tyler 05/25/2025 08:49:01 AM EDT > See phone encounter 6.?Epigastric abdominal pain?LAB: P-Amylase (Collection Date & Time - 05/11/2025 09:55 AM)?181* Value Reference Range A mylase 181 H 28-100 - U/L * Lina Garcia 05/12/2025 08: 39:57 AM EDT > See phone encounter ?LAB: P-Lipase (Collection Date & Time - 05/11/2025 09:55 AM)?399* Value Reference Range L ipase 399.0 H 13.0-60.0 - U/L * Lina Garcia 05/12/2025 08: 39:57 AM EDT > See phone encounter * Labs: * L ab: proBrain Natriuretic Peptide (Collection Date & Time - 05/11/2025 09:55 AM) 8 37 Value Reference Range p roBrain Natriuretic Peptide 837 H <300 - pg/mL * [facility], IT support 05/12/2025 05:50:08 : This order was created by the Interface. Lina Garcia 05/12/2025 08:39:57 AM EDT > See phone encounter * Procedure Codes: G 2211 Complex e/[place], [address] CBC WITH AUTO DIFF, 1036F TOBACCO NON-USER, G8420 BMI<30 AND >=22 CALC & DOCU, G8950 PREHTN/HTN BP DOC INDCD F/U DOC, G8752 MOST RECENT SYSTOLIC BP < 140MM HG, G8754 MOST RECENT DIASTOLIC BP < 90MM HG, 3074F SYST BP LT 130 MM HG, 3078F DIAST BP < 80 MM HG * Follow Up: v ia phone to report test results * Images: Billing Information: * Visit Code: 26791 Office Visit, Est Pt., Level 4. * Procedure Codes: G2211 Complex e/[place]. [address] CBC WITH AUTO DIFF. 1036F TOBACCO NON-USER. G8420 BMI<30 AND >=22 CALC & DOCU. G8950 PREHTN/HTN BP DOC INDCD F/U DOC. G8752 MOST RECENT SYSTOLIC BP < 140MM HG. G8754 MOST RECENT DIASTOLIC BP < 90MM HG. 3074F SYST BP LT 130 MM HG. 3078F DIAST BP < 80 MM HG. * Electronic signature of Mary Jane Jackman MD on 06/01/2025 at 09:33 AM EDT Sign off status: Pending * Provider: Sarah Jackman M.D. Date: Generated for Pascual gray/Milo/eTransmitting on: 09:33 AM EDT History and Physical Notes * HPI (History of Present Illness) Category Sub-Category Detail Notes Category Not es Cardiology Blood Pressure Elevated Pt compl ains of elevated bp at home fpr about one month. Pt was seen 04/14 and Metoprolol was increased to 25mg BID.Pt states blood pressure is normal in the morning but really high at night . Pt states when she check bp last night it was 184/54. Pt states elevated bp has been occompanied by shortness of breath without exertion and chest pain at times Examination Category Sub-Category Detail Notes Category Not es General Examination Heart: RSR Lungs: clear to auscultatio n General Appearance: NAD
--- OUTSIDE RECORDS SUMMARY | 2025-05-12 04:33 | XMS_ITS ---
Author Organization [facility] Address [address] [facility] [address] [facility] [address] [place] [id number] Care Team Providers Care Bi Specialist Name Role Phone Elvie Duke Primary Care Provider [phone] David Jackman [phone] Results Component Value Reference Range Notes Ultrasound : Abdomen Reviewed date:05/16/2025 09:55:23 AM Interpretation:Abnormal Performing Lab: Notes/Report: Abnormal REASON FOR VISIT Test results Encounters Encounter Location Date Provider Diagnosis [facility] [address] [facility] [address] [facility] [address] [place] [id number] 05/12/2025 David Jackman Epigastric abdominal pain R10.13 [...] LFTs (ICD-10 - R79.89) Plan Of Treatment Next Appt Details Provider Name:Elvie Robb er, 06/19/2025 10:00:00 AM, [address] [facility], [address], [place], [id number], Progress Notes * SIRENA HACKETTDOB: 1 (84 yo F)Acc No.[id number]:05/12/2025 Patient: SIRENA CHRISTIANSEN :1940 A ge:84 Y S ex:Female Address:[facility] [address], [place] [address] Subjective: * Chief Complaints: * T est [...] afternoon after lunch or Thursday; faxed to [facility] Scheduling 3.?Elevated LFTs?Imaging: Ultrasound : Abdomen* Freya Brown 05/12/2025 09: 22:38 AM EDT > patient needs RIOS; either this afternoon after lunch or Thursday; faxed to [facility] Scheduling * Procedure Codes: * true * Date: Generated for Pascual gray/Milo/eTransmitting on: 09:35 AM EDT
--- OUTSIDE RECORDS SUMMARY | 2025-05-16 05:54 | XMS_ITS ---
Author Organization [facility] Address [address] [facility] [address] [facility] [address] [place] [id number] Care Team Providers Care Talent Acquisition Program Manager Name Role Phone Elvie Duke Primary Care Provider David Jackman [phone] REASON FOR VISIT Requests Call Back Medications Medication SIG (Take, Route, Frequency, Duration) Notes Start Date End Date Status Metoprolol Succinate ER 25 MG 1 in AM, 1 in PM Orally twice a day; Duration: 90 days Active Encounters Encounter Location Date Provider Diagnosis [facility] [address] [facility] [address] [facility] [address] [place] [id number] 05/16/2025 David Jackman Gallbladder disease K82.9 ; Acute pancreatitis, unspecified complication status, unspecified pancreatitis type K85.90 and Essential hypertension I10 Assessments Encounter Date Diagnosis (ICD Code) Assessment Notes Treatment Notes Treatment Clinical Notes Section Notes 05/16/2025 Gallbladder disease (ICD-10 - K82.9) 05/16/2025 Acute pancreatitis, unspecified complication status, unspecified pancreatitis type (ICD-10 - K85.90) 05/16/2025 Essential hypertension (ICD-10 - I10) Plan Of Treatment Medication Medication Name Sig Start Date Stop Date Notes Metoprolol Succinate ER 25 MG 1 in AM, 1 in PM Orally twice a day; Duration: 90 days Pending Test Test Name Order Date [facility] 05/16/2025 Next Appt Details Provider Name:Elvie Robb er, 06/19/2025 10:00:00 AM, [address] [facility] [address], [place], [id number], Progress Notes * SIRENA HACKETTDOB: 1 (84 yo F)Acc No.[id number]:05/16/2025 Patient: SIRENA CHRISTIANSEN :1940 A ge:84 Y S ex:Female Address:[facility] [address], [place] [address] * Refills Refill Metoprolol Succinate ER Tablet Extended Release 24 Hour, 25 MG, Orally, 180, 1 in AM, 1 in PM, twice a day, 90 days, Refills=0 Subjective: * Chief Complaints: * R equests Call Back * Medical History: * Surgical History: * Hospitalization/Major Diagno stic Procedure: * Medications: Objective: * Vitals: * Physical Examination: Assessment: * Assessment: 1. G allbladder disease - K82.9 (Primary) 2 . A cute pancreatitis, unspecified complication status, unspecified pancreatitis type - K85.90 3 . E ssential hypertension - I10 Plan: * Treatment: 2.?Acute pancreatitis, unspecified complication status, unspecified pancreatitis type?Imaging: MRCP* Freya Brown 05/17/2025 08: 35:15 AM EDT > faxed to [facility] Scheduling 3.?Essential hypertension? Refill Metoprolol Succinate ER Tablet Extended Release 24 Hour, 25 MG, 1 in AM, 1 in PM, Orally, twice a day, 90 days, 180, Refills 0.?? * Procedure Codes: * true * Date: Generated for Pascual gray/Milo/eTransmitting on: 09:35 AM EDT
--- NOTE | 2025-06-01 09:18 | MR_ITS ---
FINAL REPORT CLINICAL HISTORY: r/o gallbladder disease, abnormal lab results COMPARISON: Ultrasound dated 05/15/2025 FINDINGS: Multiplanar MR imaging of the abdomen was performed without and with contrast. Images of the liver reveal no evidence of mass. There is moderate to marked intrahepatic ductal dilatation. The gallbladder is present. No localized signal abnormality is seen in the gallbladder. There is significant extrahepatic biliary ductal dilatation. The common duct measures approximately 14 mm in diameter. The pancreatic duct measures up to 8 mm in diameter. There is no definite mass in the pancreatic head. The pancreas is atrophic. Adrenal glands are unremarkable. Benign appearing renal cysts are seen, bilaterally. The cyst in the right kidney measures 2.0 cm in diameter. The cyst in the left kidney measures 2.3 cm in diameter. No other mass or adenopathy is identified. No abnormal fluid collection is seen. No abnormal contrast enhancement is seen on the postcontrast images. IMPRESSION: Prominent intrahepatic and extrahepatic biliary ductal dilatation with pancreatic ductal dilatation. No definite obstructive mass is visualized. Correlation with CT may be of value for complementary imaging evaluation. Reviewed, Interpreted and Dictated by Zeus Michael MD Transcribed by Charlotte Manuel Authenticated and [facility]
--- OUTSIDE RECORDS SUMMARY | 2025-06-01 09:34 | XMS_ITS | Patient Health Record ---
Author Organization [facility] Address [address] [place], [place] [id number] Care Team Providers Care Digital Content Specialist Name Role Phone Elvie Duke Primary Care Provider David Jackman Unavailable [phone] Aarti Shook Unavailable [phone] Allergies Allergen (clinical drug ingredient) Drug/Non Drug Allergy documented on EMR Reaction Allergy Type Onset Date Status Substance with penicillin structure and antibacterial mechanism of action (substance) Penicillins rash Drug Allergy Active Results Component Value Reference Range Notes proBrain Natriuretic Peptide Reviewed date:05/12/2025 08:40:07 AM Interpretation:837 Performing Lab: Notes/Report: CLIA: [id number] Dane Kerr MD, [employer] [address] [place] [address] , [address], [place] [address] Test performed by [facility] proBrain Natriuretic Peptide 837 <300 pg/mL Please note the updated reference range values which are stratified by age. Positive >1800 pg/mL Indeterminate 300-1800 pg/mL Negative<300 pg/mL Ultrasound : Abdomen Reviewed date:05/16/2025 09:55:23 AM Interpretation:Abnormal Performing Lab: Notes/Report: Abnormal Echocardiogram Reviewed date:05/25/2025 08:49:08 AM Interpretation:Abnormal Performing Lab: Notes/Report: Abnormal Echocardiogram Reviewed date:05/25/2025 08:49:08 AM Interpretation:Abnormal Performing Lab: Notes/Report: Abnormal P-Microalbumin/Creatinine, R andom Urine Sample Reviewed date:05/12/2025 08:40:07 AM Interpretation:Normal Performing Lab: Notes/Report: Test performed by [facility] , [address], [place] [address] Dane Kerr MD, [employer] CLIA: [id number] Albumin/Creatinine Ratio, Urine 21 0-30 ug/mg Microalbumin, Urine, Random 1.9 Creatinine, Urine 90.7 P-TSH reflex to FT4 Reviewed date:05/12/2025 08:40:07 AM Interpretation:Normal Performing Lab: Notes/Report: Test performed by [facility] , [address], [place] [address] Dane Kerr MD, [employer] CLIA: [id number] TSH reflex to FT4 2.40 0.43-5.25 mU/L P-Parathyroid Hormone (PTH) Intact Reviewed date:05/12/2025 08:40:07 AM Interpretation:Normal Performing Lab: Notes/Report: Test performed by [facility] , [place] [address] Dane Kerr MD, [employer] CLIA: [id number] Parathyroid Hormone (PTH) Intact 35.8 15.0-65.0 pg/mL P-Phosphorus Reviewed date:05/12/2025 08:40:06 AM Interpretation:Normal Performing Lab: Notes/Report: Test performed by [facility] [address] , [place] [address] Dane Kerr MD, [employer] CLIA: [id number] Phosphorus 3.9 2.5-4.5 mg/dL P-Magnesium Reviewed date:05/12/2025 08:40:06 AM Interpretation:Normal Performing Lab: Notes/Report: Test performed by [facility] [address] , [place] [address] Dane Kerr MD, [employer] CLIA: [id number] Magnesium 2.3 1.6-2.4 mg/dL P-Lipase Reviewed date:05/12/2025 08:40:06 AM Interpretation:399 Performing Lab: Notes/Report: Test performed by [facility] [address] , [address], [place] [address] Dane Kerr MD, [employer] CLIA: [id number] Lipase 399.0 13.0-60.0 U/L P-Comprehensive Metabolic Pa uyri (CMP) Reviewed date:05/12/2025 08:40:06 AM Interpretation:gluc 104, bun 36, Cr 1.37, gfr 38m alk phos 572, alt 187, ast 147, bili 1.5 Performing Lab: Notes/Report: Test performed by [facility] [address] [place] [address] , [address], [place] [address] Dane Kerr MD, [employer] CLIA: [id number] Sodium 139 135-145 mmol/L Potassium 4.6 3.5-5.3 [...] 1.5 <0.2-1.2 mg/dL A/G Ratio 1.6 1.1-2.5 P-BNP (Brain Natriuretic Pep tide) Reviewed date:05/16/2025 09:55:05 AM Interpretation: Performing Lab: Notes/Report: P-Amylase Reviewed date:05/12/2025 08:40:06 AM Interpretation:181 Performing Lab: Notes/Report: Test performed by [facility] [address] [place] [address] , [address], [place] [address] Dane Kerr MD, [employer] CLIA: [id number] Amylase 181 28-100 U/L CBC Venipuncture (in [...] - 38 platlet 317 100 - 400 P-Basic Metabolic Panel (BMP ) Reviewed date:02/24/2025 12:22:07 PM Interpretation:bun 36, Cr 1.31, gfr 40 Performing Lab: Notes/Report: Test performed by [facility] [address] [place] [address] , [address], [place] [address] Dane Kerr MD, [employer] CLIA: [id number] Sodium 141 135-145 mmol/L Potassium 4.2 3.5-5.3 mmol/L Chloride 105 97-108 mmol/L CO2 25 20-32 mmol/L Glucose 88 65-99 mg/dL BUN 36 8-23 mg/dL Creatinine 1.31 0.50-1.00 mg/dL Calcium 9.5 8.6-10.4 mg/dL eGFR by Creatinine 40 >59 mL/min/1.73m2 P-Lipid Panel Reviewed date:02/24/2025 12:22:07 PM Interpretation:Normal Performing Lab: Notes/Report: Test performed by [facility] [address] [place] [address] , [address] , [place] [address] Dane Kerr MD, [employer] CLIA: [id number] Cholesterol 114 <200 mg/dL Triglycerides 77 <150 [...] Results: 52 Units: mg/dL % Change: -1% CBC Venipuncture (in house) Reviewed date:10/11/2024 08:44:13 [...] 47 Performing Lab: Notes/Report: Test performed by [facility] [address] [place] [address] , [address], [place] [address] Dane Kerr MD, [employer] CLIA: [id number] Sodium 143 135-145 mmol/L Potassium 4.3 3.5-5.3 [...] Performing Lab: Notes/Report: osteopenia Dexa results osteopenia Reason For Referral No Information Medications Medication [...] twice a day; Duration: 90 days Active Losartan Potassium 50 MG 1 tablet Orally Once a day Active Immunizations Vaccine Route Administration Date Status Comme nts Zostavax Unknown 05/30/2013 Administered rMtkvird-qdxhzzxco-rmllnvm e pts. IM Intramuscular 05/25/2012 Administered xFluzone [...] Status Risk Notes Problem Vitamin D deficiency (76617467) Vitamin D deficiency (E55.9) Active confirmed Problem Essential hypertension (17683077) Essential hypertension (I10) Active confirmed Problem Hyperlipidemia (25436825) Hyperlipidemia, unspecified (E78.5) Active confirmed Problem Gastroesophageal reflux disease (231527838) GERD without esophagitis (K21.9) Active confirmed Problem History of polyp of colon (situation) (287289544) History of colon polyps (Z86.010) Active confirmed Problem Sciatica (95099343) Sciatica of right side (M54.31) Active confirmed Problem Renal insufficiency (637117654) Renal insufficiency (N28.9) Active confirmed Problem Osteoporosis (33840996) Osteoporosis (M81.0) Active confirmed Problem Nonsustained paroxysmal supraventricular tachycardia (7283921717314) Supraventricular tachycardia, nonsustained (I47.9) Active confirmed Problem Atherosclerosis of coronary artery without angina pectoris (287006955929419) Athscl heart disease of [place] coronary artery w/o ang pctrs (I25.10) Active confirmed Problem Cardiomyopathy (37324423) Cardiomyopathy (I42.9) Active confirmed Problem Cardiac dysrhythmia (823380422) Cardiac dysrhythmia, unspecified (I49.9) Active confirmed Problem Pure hypercholesterolemia (835014205) Pure hypercholesterolemia (E78.00) Active confirmed Problem Fibrocystic breast changes (24060362) Fibrocystic breast disease, left (N60.12) Active confirmed Problem Epigastric fullness (9767700) Epigastric fullness (R19.06) Active confirmed Problem Chronic kidney disease stage 3B (disorder) (269743250) Stage 3b chronic kidney disease (CKD) (N18.32) Active confirmed Vital Signs Heart Rate 66 /min 05/11/2025 Blood pressure diastolic 52 mm Hg 05/11/2025 Height 64.25 in 05/11/2025 Blood pressure systolic 122 mm Hg 05/11/2025 Weight 147.2 lbs 05/11/2025 BMI 25.07 kg/m2 05/11/2025 Encounters Encounter Location Date [facility] [address] [id number] 10/10/2024 Elvie Duke Essential hypertensi on I10 ; Renal insufficiency N28.9 ; Osteoporosis M81.0 and Cardiac dysrhythmia, unspecified I49.9 [facility] [address], [place] [id number] 02/10/2025 Elvie Duke Essential hypertensi on I10 ; Athscl heart disease of [place] coronary artery w/o ang pctrs I25.10 ; Renal insufficiency N28.9 ; Cardiomyopathy I42.9 ; Supraventricular tachycardia, nonsustained I47.9 ; Hyperlipidemia, unspecified E78.5 and BMI 25.0-25.9,adult Z68.25 [facility] [address], [place] [id number] 04/24/2025 Aarti Shook Essential hypertensi on I10 and BMI 25.0-25.9,adult Z68.25 [facility] [address] [facility] [address], [place] [id number] 05/11/2025 David Jackman Essential hypertensi on I10 ; SOB (shortness of breath) R06.02 ; Stage 3b chronic kidney disease (CKD) N18.32 ; Other fatigue R53.83 ; Cardiomyopathy I42.9 ; Epigastric abdominal pain R10.13 and BMI 25.0-25.9,adult Z68.25 [facility] [address] [place], [place] [id number] 05/25/2025 David [place] [facility] [address] [place] [id number] 06/02/2024 Elvie Hilario Duke [facility] [address] [place] [id number] 09/07/2024 Elvie Duke [facility] [address] [place] [id number] 10/11/2024 Elvie Duke [facility] [address] [place] [id number] 02/24/2025 Elvie Duke [facility] [address] [place] [id number] 05/12/2025 David [place] Epigastric abdominal pain R10.13 ; Acute pancreatitis, unspecified complication status, unspecified pancreatitis type K85.90 and Elevated LFTs R79.89 [facility] [address] [place], [place] [id number] 05/16/2025 David [place] Gallbladder disease K82.9 ; Acute pancreatitis, unspecified complication status, unspecified pancreatitis type K85.90 and Essential hypertension I10 Assessments Encounter Date Diagnosis (ICD Code) Assessment Notes Treatment Notes Treatment Clinical Notes Section Notes 02/10/2025 Essential hypertension (ICD-10 - I10) b 04/24/2025 Essential hypertension (ICD-10 - I10) will increase metoprolol to 25 mg bid; she will continue to monitor BP at home 04/24/2025 BMI 25.0-25.9,adult (ICD-10 - Z68.25) 05/11/2025 Essential hypertension (ICD-10 - I10) 05/11/2025 SOB (shortness of breath) (ICD-10 - R06.02) 02/10/2025 Athscl heart disease of [place] coronary artery w/o ang pctrs (ICD-10 - I25.10) b 05/16/2025 Gallbladder disease (ICD-10 - K82.9) 05/16/2025 Acute pancreatitis, unspecified complication status, unspecified pancreatitis type (ICD-10 - K85.90) 05/12/2025 Epigastric abdominal pain (ICD-10 - R10.13) 05/12/2025 Acute pancreatitis, unspecified complication status, unspecified pancreatitis type (ICD-10 - K85.90) 10/10/2024 Essential hypertension (ICD-10 - I10) 10/10/2024 Renal insufficiency (ICD-10 - N28.9) 10/10/2024 Osteoporosis (ICD-10 - M81.0) 05/16/2025 Essential hypertension (ICD-10 - I10) 05/11/2025 Stage 3b chronic kidney disease (CKD) (ICD-10 - N18.32) 05/12/2025 Elevated LFTs (ICD-10 - R79.89) 02/10/2025 Renal insufficiency (ICD-10 - N28.9) b 05/11/2025 Other fatigue (ICD-10 - R53.83) 02/10/2025 Cardiomyopathy (ICD-10 - I42.9) b 10/10/2024 Cardiac dysrhythmia, unspecified (ICD-10 - I49.9) 05/11/2025 Cardiomyopathy (ICD-10 - I42.9) 02/10/2025 Supraventricular tachycardia, nonsustained (ICD-10 - I47.9) b 05/11/2025 Epigastric abdominal pain (ICD-10 - R10.13) 02/10/2025 Hyperlipidemia, unspecified (ICD-10 - E78.5) b 05/11/2025 BMI 25.0-25.9,adult (ICD-10 - Z68.25) 02/10/2025 BMI 25.0-25.9,adult (ICD-10 - Z68.25) b Plan Of Treatment Pending Test Test Name Order Date MRCP 05/16/2025 MRCP with and w/o contrast 05/22/2025 Next Appt Details Provider Name:Elvie Robb , 06/19/2025 10:00:00 AM, [address] [facility], [address], [place], [place], [id number], Insurance Providers Payer Name Payer Address Payer Phone Subscriber Number Group Number Insured Name Patient Relationship to Insured Coverage Start Date Coverage End Date [employer] (MEDICAR E) [address] [address] [place] [address] [phone] [id number] SIRENA HACKETT Self - patient is the insured Medical (General) History Medical History History ICD Code ZostaVax 05/30 Heart Cath, EF=50-60%, 08/28/2015 Osteopenia of Multiple Sites Supraventricular Tachycardia, nonsustain ed Athscl Heart Disease of [place] Coronary Artery w/o ang PCTRS Essential Hypertension Pure Hypercholesterolemia Cardiomyopathy Hyperlipidemi Vitamin D Deficiency Shingrix #1, 12/2018 Covid Vaccines, Genet HD, 10/03/2020 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, Dr. Souza 09/07/2014 Holter with one fourteen beat run of SVT 05/16/2015 Colonoscopy, Dr. Daniels 02/2020
--- OUTSIDE RECORDS SUMMARY | 2025-06-01 09:35 | XMS_ITS | Referral Summary ---
Author Organization [facility] ([place], [place], [place], [place]) Address [address] [place] [address] Care Team Providers Care Service Restorer Emergency Name Role Phone Hilario Duke MD Primary Care Provider + [phone] Encounters Date Type Department Care Team Description 03/03/2025 Travel 03/03/2025 2:30 PM EDT Office Visit [facility] Cardiology [address] [place] [phone] Swati Che APRN Arteriosclerosis of coronary [...] Date Gurinder rded Speak language other than Somali at home Not on file 08/14/2023 Want [...] Description 07/28/2025 2:00 PM EST Office Visit [facility]iology [address] [place] [address] Swati Che APRN [address] [facility] [address] [place], [place] [id number] Procedures Procedure Name Priority Date/Time Associated Diagnosis Comments FS_MODEL_IP_ECG 12-LEAD Routine 03/17/2025 12:55 PM EDT Arteriosclerosis of coronary artery Primary hypertension from Last 3 Months Results * ECG 12 lead (03/17/2025 12:55 PM EDT) [facility] [place] APPRAISAL COORDINATOR ECG ORDERABLES Final Result from Last 3 Months Insurance [employer] MEDICARE PPO Care Teams Service Restorer Emergency Relationship Specialty Start Date End Date Hilario Duke MD [address] [facility] [address] [place] [address] PCP - General Neurology 11/11/22
--- OUTSIDE RECORDS SUMMARY | 2025-06-01 09:35 | XMS_ITS | Clinical Summary ---
Author Organization [facility] ([place], [place], [place], [place]) Address [address] [place] [address] Care Team Providers Care Guest Service Manager Name Role Phone Hilario Duke MD Primary Care Provider + [phone] Allergies Active Allergy Reactions Criticality Noted Date [...] Description 03/03/2025 2:30 PM EDT Office Visit [facility] Cardiology [address] [place] [phone] Swati Che G, COMMUNITY DIETITIAN Arteriosclerosis of coronary artery (Primary Dx); Primary [...] Date Gurinder rded Speak language other than Burundian at home Not on file 08/14/2023 Want [...] Description 07/28/2025 2:00 PM EST Office Visit [facility] [address] [place] [phone] Swati Che G, COMMUNITY DIETITIAN [address] [place] [address] [address] [place] [address] Health Maintenance Due Date Last Done Comments [...] 12 lead (03/17/2025 12:55 PM EDT) [facility] ORDERABLES Final Result from Last 3 Months Insurance Care Teams Guest Service Manager Relationship Specialty Start Date End Date Hilario Duke MD [address] [facility] [address] [place] [address] PCP - General Neurology 11/11/22
[2025-06-01 10:01] LABS: Blood Urea Nitrogen 37 mg/dl (7-17); Creatinine,Serum 1.40 mg/dl (0.52-1.04); Estimated Glomerular Filt Rate 36 ml/min (>60); GFR (African American) 43 ML/MIN (>60)
[2025-06-01] MEDS: GADOTERIDOL INJ 20ML SYRINGE 14 ML IV (11:05)
== END 2025-06-01 23:59 | disposition home or self-care (01) ==
LOC: RAD 09:17
PROVIDERS: PCP Family Medicine; Visit Provider Family Medicine
DX: K83.8 Other specified diseases of biliary tract (principal); K86.89 Other specified diseases of pancreas; K85.90 Acute pancreatitis without necrosis or infection, unspecified; K82.9 Disease of gallbladder, unspecified
CPT/HCPCS: 36415; 74183; 82565; 84520; A9576